=== PATIENT | female | born 1945 | race Caucasian/White ===

== ENCOUNTER → 2016-11-10 | Outpatient (CLI) | payer MEDICARE, OTHER ==
[~2016-11-10] MED LIST: ATEN50TA PO; CYCL10TA9 PO; ISOS30TA7 PO; LISI20TA PO; PRD10T PO; ROSU20TA14 PO; SERT50TA9 PO; ZOLP5TAB6 PO
--- NOTE | 2016-11-10 18:15 | Diagnostic Imaging Report ---
Three views of the lumbar spine. INDICATION: Back pain. FINDINGS: The alignment of the posterior spinal line is satisfactory. Vertebral body heights are preserved. There is moderate disc height loss at mid lumbar spine levels most prominent at the L4-L5 and L2-L3 levels. Prominent anterior osteophytes are seen. No significant posterior osteophytes. [id number] degenerative changes of the SI joints noted. IMPRESSION: Disc degenerative changes. Dictated by: Dictated on workstation # [id number]
--- NOTE | 2016-11-10 18:21 | Diagnostic Imaging Report ---
EXAMINATION: Two views of the left hip. INDICATION: Left hip pain. FINDINGS: There is no fracture, dislocation or radiopaque foreign body. Minimal subchondral sclerosis is seen. No significant osteophyte formation or joint space narrowing. There are metallic foreign bodies overlapping from the patient's pants as verified by the x-ray technologist who took the exam. IMPRESSION: Minimal degenerative changes. Dictated by: Dictated on workstation # [id number]
--- NOTE | 2016-11-10 18:38 | Diagnostic Imaging Report ---
Three views of the SI joints. INDICATION: Pain. FINDINGS: There are mild degenerative sclerotic changes at the SI joints and vacuum phenomenon. No fracture or dislocation seen. Overlying metallic foreign bodies are verified by the x-ray technologist as on the patient's pants. IMPRESSION: Mild degenerative changes. Dictated by: Dictated on workstation # [id number]
== END ==
LOC: RAD 15:56
PROVIDERS: ATTEND Family Medicine
DX: M54.5 Low back pain (principal); M25.552 Pain in left hip
CPT/HCPCS: 72100; 72202; 73502

== ENCOUNTER → 2016-12-17 | Outpatient (CLI) | payer MEDICARE, OTHER ==
[~2016-12-17] MED LIST changes: +CATHETER FLUSH 10 ML SYR IV PRN; +IOHEXOL 350 MG/ML 100 ML (OMNIPAQUE 350) VIAL IV ONE; +NS 100 ML (IVPB) BAG IV ONE
--- NOTE | 2016-12-17 13:14 | Diagnostic Imaging Report ---
PROCEDURE: CT abdomen and pelvis with contrast. TECHNIQUE: Multiple contiguous axial images were obtained through the abdomen and pelvis after administration of intravenous contrast. INDICATION: Abdominal pain. Right flank pain. 100 mL of Omnipaque 350 is administered intravenously. FINDINGS: The lung bases demonstrate minimal atelectasis bilaterally. The liver, the gallbladder, the spleen, the adrenals, and the pancreas appear unremarkable. The abdominal aorta is normal in caliber with no para-aortic significantly enlarged lymph nodes seen. The kidneys have symmetric enhancement and contrast excretion. No hydronephrosis. There is divarication of the recti with mild bulge along the anterior abdominal wall without a ventral hernia. There is no free fluid or fluid collection in the abdomen or pelvis seen. There is diverticulosis. No significant inflammatory changes are seen to suggest the presence of diverticulitis. There is no bowel obstruction. There is suggestion of prior hysterectomy. The osseous structures demonstrate prominent degenerative changes of the lower lumbar spine and SI joints. IMPRESSION: Diverticulosis. No diverticulitis. Dictated by: Dictated on workstation # [id number]
== END ==
LOC: RAD 11:01
PROVIDERS: ATTEND Nurse Practitioner Family
DX: R10.84 Generalized abdominal pain (principal); R14.0 Abdominal distension (gaseous); K57.30 Diverticulosis of large intestine without perforation or abscess without bleeding
CPT/HCPCS: 74177

== ENCOUNTER 2017-10-11 06:03 | Emergency (ER) | payer MEDICARE, OTHER ==
[~2017-10-11] VITALS: Ht 162.6 cm; Wt 86.2 kg
[~2017-10-11 06:03] MED LIST changes: -CATHETER FLUSH 10 ML SYR IV PRN; -IOHEXOL 350 MG/ML 100 ML (OMNIPAQUE 350) VIAL IV ONE; -NS 100 ML (IVPB) BAG IV ONE
[2017-10-11 06:58] LABS: BASOPHILS % (AUTO) 0 % (0-10); EOSINOPHILS # (AUTO) 0.1 10^3/uL (0.0-0.3); EOSINOPHILS % (AUTO) 2 % (0-10); HEMATOCRIT 38 % (35-52); HEMOGLOBIN 12.9 G/DL (11.5-16.0); LYMPHOCYTES # (AUTO) 0.7 X 10^3 (1.0-4.0); LYMPHOCYTES % (AUTO) 8 % (12-44); MEAN CORPUSCULAR HEMOGLOBIN 30 PG (25-34); MEAN CORPUSCULAR HGB CONC 34 G/DL (32-36); MEAN CORPUSCULAR VOLUME 88 FL (80-99); MEAN PLATELET VOLUME 10.8 FL (7.4-10.4); MONOCYTES # (AUTO) 0.6 X 10^3 (0.0-1.0); MONOCYTES % (AUTO) 7 % (0-12); NEUTROPHILS # (AUTO) 6.8 X 10^3 (1.8-7.8); NEUTROPHILS % (AUTO) 83 % (42-75); PLATELET COUNT 152 10^3/uL (130-400); RED BLOOD COUNT 4.31 10^6/uL (4.35-5.85); RED CELL DISTRIBUTION WIDTH 13.1 % (10.0-14.5); WHITE BLOOD COUNT 8.2 10^3/uL (4.3-11.0)
[2017-10-11 07:14] LABS: ALBUMIN 4.3 GM/DL (3.2-4.5); BILIRUBIN,TOTAL 0.7 MG/DL (0.1-1.0); CALCIUM 9.8 MG/DL (8.5-10.1); CREATININE SERUM 1.05 MG/DL (0.60-1.30); POTASSIUM 3.7 MMOL/L (3.6-5.0); TOTAL PROTEIN 7.8 GM/DL (6.4-8.2)
--- NOTE | 2017-10-11 07:57 | Diagnostic Imaging Report ---
INDICATION: Cough. COMPARISON: 05/17/2008 TECHNIQUE: Single frontal radiograph of the chest dated 10/11/2017. FINDINGS: The cardiac silhouette is within normal limits. No significant pulmonary vascular congestion. The lungs are clear. No pleural effusion. No pneumothorax. No acute osseous abnormality. IMPRESSION: No acute cardiopulmonary abnormality. Dictated by: Dictated on workstation # [id number]
--- NOTE | 2017-10-11 08:33 | ED Cough/URI ---
General Chief Complaint: Cough/Cold/Flu Symptoms Stated Complaint: SORE THROAT HEADACHE BODY ACHES ALL OVER Nursing Triage Note: PT C/O SORE THROAT, BODY ACHES, CAN, CHILLS, AND MALAISE SINCE THURSDAY EVENING. Source: patient Exam Limitations: no limitations History of Present Illness Date Seen by Provider: Oct 11, 2017 Time Seen by Provider: 08:28 Initial Comments The patient is a 72-year-old white female. She reports that since she has had a significant sore throat, a headache, and aching all over her body. Temperature at presentation was 99.5. She was especially concerned because she has lupus. She denied chills or sweats. Timing/Duration: week Severity/Quality: no cough Prior Episodes/Possible Cause: occasional episodes Allergies and Home Medications Allergies Coded Allergies: No Known Drug Allergies (Unverified , 02/04/12) Home Medications Atenolol 50 Mg Tablet, 1 EACH PO DAILY, (Reported) Cyclobenzaprine Hcl 10 Mg Tablet, 1 EACH PO Q8HR PRN Prescribed by: DAMEON KIRAN on 02/04/12 0859 Isosorbide Dinitrate 30 Mg Tablet, 1 EACH PO BID, (Reported) Lisinopril 20 Mg Tablet, 20 MG PO BID, (Reported) Prednisone 10 Mg Tab, 30 MG PO DAILY Prescribed by: DAMEON KIRAN on 02/04/12 0859 Rosuvastatin Calcium 20 Mg Tablet, 1 EACH PO DAILY, (Reported) Sertraline Hcl 50 Mg Tablet, 50 MG PO DAILY, (Reported) Zolpidem Tartrate 5 Mg Tablet, 5 MG PO DAILY, (Reported) Patient Home Medication List Home Medication List Reviewed: Yes Constitutional: see HPI EENTM: nose congestion, throat pain Respiratory: no symptoms reported Cardiovascular: no symptoms reported Gastrointestinal: no symptoms reported Musculoskeletal: muscle pain Skin: no symptoms reported Psychiatric/Neurological: No Symptoms Reported Hematologic/Lymphatic: No Symptoms Reported Past Ytsjrhb-Rdguhk-Mxfkia Hx Patient Social History Alcohol Use: Denies Use Recreational Drug Use: No Smoking Status: Never a Smoker 2nd Hand Smoke Exposure: No Recent Foreign Travel: No Contact w/Someone Who Travel: No Recent Infectious Disease Expo: No Recent Hopitalizations: No Immunizations Up To Date Date of Pneumonia Vaccine: May 03, 2011 Seasonal Allergies Seasonal Allergies: No Surgeries History of Surgeries: Yes Surgeries: Hysterectomy, Tonsillectomy Respiratory History of Respiratory Disorde: No Cardiovascular History of Cardiac Disorders: Yes Cardiac Disorders: High Cholesterol, Hypertension Neurological History of Neurological Disord: No Genitourinary History of Genitourinary Disor: No Gastrointestinal History of Gastrointestinal Di: No Musculoskeletal History of Musculoskeletal Dis: No Endocrine History of Endocrine Disorders: No HEENT History of HEENT Disorders: No Cancer History of Cancer: No Psychosocial History of Psychiatric Problem: No Integumentary History of Skin or Integumenta: No Physical Exam Vital Signs Vital Signs - First Documented 10/11/17 06:25 Temp 99.1 Pulse 76 Resp 16 B/P (MAP) 138/76 (96) Pulse Ox 97 O2 Delivery Room Air Capillary Refill : Less Than 3 Seconds General Appearance: mild distress Eyes: Bilateral Eye Normal Inspection HEENT: pharyngeal erythema Neck: full range of motion Respiratory: chest non-tender, lungs clear, normal breath sounds, no respiratory distress, no accessory muscle use, respiratory distress Cardiovascular: normal peripheral pulses, regular rate, rhythm, no edema, no gallop, no JVD, no murmur Gastrointestinal: normal bowel sounds, non tender, soft, no organomegaly, no pulsatile mass 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, no motor/sensory deficits, alert, normal mood/affect, oriented x 3 Skin: normal color, warm/dry, cyanosis, cool, diaphoresis, damp Lymphatic: no adenopathy Progress/Results/Core Measures Suspected Sepsis Recent Fever Within 48 Hours: No Infection Criteria Present: None New/Unexplained Altered Menta: No Sepsis Screen: No Definite Risk Sepsis Diagnosis: SIRS Temperature:99.1 Pulse: 76 Respiratory Rate: 16 Laboratory Tests 10/11/17 06:50: White Blood Count 8.2 Blood Pressure 138 /76 Mean: 96 Laboratory Tests 10/11/17 06:50: Creatinine 1.05, Platelet Count 152, Total Bilirubin 0.7 Results/Orders Lab Results Laboratory Tests Test 10/11/17 06:50 Range/Units White Blood Count 8.2 4.3-11.0 10^3/uL Red Blood Count 4.31 L 4.35-5.85 10^6/uL Hemoglobin 12.9 11.5-16.0 G/DL Hematocrit 38 35-52 % Mean Corpuscular Volume 88 80-99 FL Mean Corpuscular Hemoglobin 30 25-34 PG Mean Corpuscular Hemoglobin Concent 34 32-36 G/DL Red Cell Distribution Width 13.1 10.0-14.5 % Platelet Count 152 130-400 10^3/uL Mean Platelet Volume 10.8 H 7.4-10.4 FL Neutrophils (%) (Auto) 83 H 42-75 % Lymphocytes (%) (Auto) 8 L 12-44 % Monocytes (%) (Auto) 7 0-12 % Eosinophils (%) (Auto) 2 0-10 % Basophils (%) (Auto) 0 0-10 % Neutrophils # (Auto) 6.8 1.8-7.8 X 10^3 Lymphocytes # (Auto) 0.7 L 1.0-4.0 X 10^3 Monocytes # (Auto) 0.6 0.0-1.0 X 10^3 Eosinophils # (Auto) 0.1 0.0-0.3 10^3/uL Basophils # (Auto) 0.0 0.0-0.1 10^3/uL Sodium Level 140 135-145 MMOL/L Potassium Level 3.7 3.6-5.0 MMOL/L Chloride Level 104 98-107 MMOL/L Carbon Dioxide Level 27 21-32 MMOL/L Anion Gap 9 5-14 MMOL/L Blood Urea Nitrogen 18 7-18 MG/DL Creatinine 1.05 0.60-1.30 MG/DL Estimat Glomerular Filtration Rate 51 BUN/Creatinine Ratio 17 Glucose Level 114 H 70-105 MG/DL Calcium Level 9.8 8.5-10.1 MG/DL Total Bilirubin 0.7 0.1-1.0 MG/DL Aspartate Amino Transf (AST/SGOT) 24 5-34 U/L Alanine Aminotransferase (ALT/SGPT) 20 0-55 U/L Alkaline Phosphatase 116 40-136 U/L Total Protein 7.8 6.4-8.2 GM/DL Albumin 4.3 3.2-4.5 GM/DL Micro Results Microbiology 10/11/17 Influenza Types A,B Antigen (LOIS) - Final, Complete My Orders Orders - FABIAN MANNING MD Cbc With Automated Diff (10/11/17 06:37) Comprehensive Metabolic Panel (10/11/17 06:37) Ua Culture If Indicated (10/11/17 06:37) Influenza A And B Antigens (10/11/17 06:37) Chest 1 View, Ap/Pa Only (10/11/17 07:17) Vital Signs/I&O Vital Sign - Last 12Hours 10/11/17 06:25 Temp 99.1 Pulse 76 Resp 16 B/P (MAP) 138/76 (96) Pulse Ox 97 O2 Delivery Room Air Capillary Refill : Less Than 3 Seconds Blood Pressure Mean: 96 Departure Impression Impression: Primary Impression: Upper respiratory infection Disposition: HOME, SELF-CARE Condition: Stable/Unchanged Departure-Patient Inst. Referrals: JÚNIOR KLINE MD (PCP/Family) Primary Care Physician Patient Instructions: Viral Upper Respiratory Infection, Adult (DC) Add. Discharge Instructions: All discharge instructions reviewed with patient and/or family. Voiced understanding. Although you tested negative for the flu, the test is not infallible and you may indeed have the flu. Treatment is symptomatic which is to say throat lozenges or gargles for the throat pain. In addition if the fever is greater than 100.5 or there is significant body aching the use of Tylenol 650 mg or ibuprofen 600 mg it is useful. Rest and lots of fluids are in order. This can take a week or more to resolve. If symptoms increase return here or see her provider. FABIAN MANNING MD Oct 11, 2017 08:33
[2017-10-11 08:42] VITALS: BP 138/76
--- OUTSIDE RECORDS SUMMARY | 2017-10-11 14:22 | XMS REPORT | CCD ---
Author Author Sary Polo Organization Sary Polo MD, [facility] Address [address] [place] [address] Phone Care Team Providers Care Sports Photographer Name Role Phone PP Unavailable CCM Unavailable Summary Purpose Interface Exchange Insurance Providers Payer name Policy type / Coverage type Covered constitution party ID Effective Begin Date Effective End Date WPS Medicare Part B Medicare Part B [id number] Unknown Unknown [facility] [employer] Medicare Part B [id number] Unknown Unknown Family history Mother Diagnosis Age At Onset Diabetes mellitus Type 2 Unknown Stroke Unknown Father Diagnosis Age At Onset Heart Attack Unknown Social History Social History Element Codes Description Effective Dates Marital status Unknown 10/23/2014 Number of children Unknown 2 10/23/[address]: 593472278 Never smoker 10/23/[address]: 187779443 Never drinks alcohol 10/23/2014 Allergies, Adverse Reactions, Alerts Allergies, Adverse Reactions, Alerts data not found Past Medical History Illness Codes Condition Status Onset Date Resolved Date Discoid lupus erythematosus ICD-9: 695.4 ICD-10: L93.0 Active 05/04/2016 Unknown Essential (primary) hypertension ICD-9: 401.1 ICD-10: I10 Active 11/10/2016 Unknown Encounter for immunization ICD-9: V03.9 ICD-10: Z23 Active 05/18/2017 Unknown Mixed hyperlipidemia ICD-9: 272.2 ICD-10: E78.2 Active 11/10/2016 Unknown Morbid (severe) obesity due to excess calories ICD-9: 278.01 ICD-10: E66.01 Active 05/18/2017 Unknown Other forms of dyspnea ICD-9: 786.09 ICD-10: R06.09 Active 02/04/2017 Unknown Generalized abdominal pain ICD-9: 789.07 ICD-10: R10.84 Active 12/12/2016 Unknown Low back pain ICD-9: 724.2 ICD-10: M54.5 Active 11/10/2016 Unknown Other organ or system involvement in systemic lupus erythematosus ICD-9: 710.0 ICD-10: M32.19 Active 02/04/2017 Unknown Abnormal uterine and vaginal bleeding, unspecified ICD-9: 623.8 ICD-10: N93.9 Active 12/12/2016 Unknown Pain in left hip ICD-9 : 719.45 ICD-10: M25.552 Active 11/10/2016 Unknown Encounter for general adult medical examination without abnormal findings ICD-9: V70.9 ICD-10: Z00.00 Active 10/17/2016 Unknown Essential (primary) hypertension ICD-9: 401.9 ICD-10: I10 Active 10/23/2014 Unknown Systemic lupus erythematosus, unspecified ICD-9: 710.0 ICD-10: M32.9 Active 10/01/2015 Unknown Encounter for screening mammogram for malignant neoplasm of breast ICD-9: V76.12 ICD-10: Z12.31 Active 08/10/2016 Unknown Encounter for immunization ICD-9: V03.82 ICD-10: Z23 Active 05/04/2016 Unknown Dysphonia ICD-9: 784.42 ICD-10: R49.0 Active 04/20/2016 Unknown Encounter for immunization ICD-9: V04.81 ICD-10: Z23 Active 04/20/2016 Unknown Other intestinal malabsorption ICD-9: 579.8 ICD-10: K90.89 Active 04/20/2016 Unknown Other fecal abnormalities ICD-9: 787.7 ICD-10: R19.5 Active 10/01/2015 Unknown Intestinal malabsorption, unspecified ICD-9: 579.9 ICD-10: K90.9 Active 08/08/2015 Unknown Medication reaction ICD-9: 995.20 Active 03/13/2015 Unknown Low back pain ICD-9: 724.2 Active 12/25/2014 Unknown Sacroiliitis ICD-9: 720.2 Active 12/25/2014 Unknown Hypertension Unknown Active 10/23/2014 Unknown ESOPHAGEAL REFLUX ICD- 9: 530.81 Active 10/23/2014 Unknown ESSENTIAL HYPERTENSION ICD-9: 401.9 Active 10/23/2014 Unknown Malar rash ICD-9: 782.1 Active 10/23/2014 Unknown Rosacea ICD-9: 695.3 Active 10/23/2014 Unknown Problems Condition Codes Effective Dates Condition Status Discoid lupus erythematosus ICD-9: 695.4 ICD-10: L93.0 05/04/2016 Active Essential (primary) hypertension ICD-9: 401.1 ICD-10: I10 11/10/2016 Active Encounter for immunization ICD-9: V03.9 ICD-10: Z23 05/18/2017 Active Mixed hyperlipidemia ICD-9: 272.2 ICD-10: E78.2 11/10/2016 Active Morbid (severe) obesity due to excess calories ICD-9: 278.01 ICD-10: E66.01 05/18/2017 Active Other forms of dyspnea ICD-9: 786.09 ICD-10: R06.09 02/04/2017 Active Generalized abdominal pain ICD-9: 789.07 ICD-10: R10.84 12/12/2016 Active Low back pain ICD-9: 724.2 ICD-10: M54.5 11/10/2016 Active Other organ or system involvement in systemic lupus erythematosus ICD-9: 710.0 ICD-10: M32.19 02/04/2017 Active Abnormal uterine and vaginal bleeding, unspecified ICD-9: 623.8 ICD-10: N93.9 12/12/2016 Active Pain in left hip ICD-9 : 719.45 ICD-10: M25.552 11/10/2016 Active Encounter for general adult medical examination without abnormal findings ICD-9: V70.9 ICD-10: Z00.00 10/17/2016 Active Essential (primary) hypertension ICD-9: 401.9 ICD-10: I10 10/23/2014 Active Systemic lupus erythematosus, unspecified ICD-9: 710.0 ICD-10: M32.9 10/01/2015 Active Encounter for screening mammogram for malignant neoplasm of breast ICD-9: V76.12 ICD-10: Z12.31 08/10/2016 Active Encounter for immunization ICD-9: V03.82 ICD-10: Z23 05/04/2016 Active Dysphonia ICD-9: 784.42 ICD-10: R49.0 04/20/2016 Active Encounter for immunization ICD-9: V04.81 ICD-10: Z23 04/20/2016 Active Other intestinal malabsorption ICD-9: 579.8 ICD-10: K90.89 04/20/2016 Active Other fecal abnormalities ICD-9: 787.7 ICD-10: R19.5 10/01/2015 Active Intestinal malabsorption, unspecified ICD-9: 579.9 ICD-10: K90.9 08/08/2015 Active Medication reaction ICD-9: 995.20 03/13/2015 Active Low back pain ICD-9: 724.2 12/25/2014 Active Sacroiliitis ICD-9: 720.2 12/25/2014 Active Hypertension Unknown 10/23/2014 Active ESOPHAGEAL REFLUX ICD- 9: 530.81 10/23/2014 Active ESSENTIAL HYPERTENSION ICD-9: 401.9 10/23/2014 Active Malar rash ICD-9: 782.1 10/23/2014 Active Rosacea ICD-9: 695.3 10/23/2014 Active Medications Medication Codes Instructions Start Date Stop Date Status Fill Instructions hydroxychloroquine 200 mg tablet RxNorm: 939790 1 Tablet(s) PO BID 07/01/2017 12/27/2017 Active atenolol 50 mg tablet RxNorm: 099212 1 Tablet(s) PO daily 201606/05/2018 Active sertraline 50 mg tablet RxNorm: 336140 TAKE 1 TABLET EVERY DAY 05/15/2017 05/09/2018 Active pravastatin 20 mg tablet RxNorm: 981948 1 Tablet(s) PO daily 02/02/2018 Active ipratropium bromide 0.06 % nasal spray RxNorm: 5364965 2 [place] NASAL daily 10/20/2016 10/14/2017 Active ipratropium bromide 0.06 % nasal spray RxNorm: 9176813 2 [place] daily 10/17/2016 10/19/2016 Inactive losartan 50 mg tablet RxNorm: 352325 1 Tablet(s) PO QPM 201610/07/2017 Active ipratropium bromide 0.06 % nasal spray RxNorm: 7416749 2 [place] NAS[place] 10/13/2016 10/16/2016 Inactive atenolol 50 mg tablet RxNorm: 211923 1 Tablet(s) PO daily 201606/10/2017 Inactive isosorbide mononitrate ER 30 mg tablet,extended release 24 hr RxNorm: 546497 2 Tablet(s) PO daily 05/05/2016 10/16/2016 Inactive sertraline 50 mg tablet RxNorm: 813219 1 Tablet(s) PO daily 04/15/2017 Inactive dicyclomine 10 mg capsule RxNorm: 919968 1 Capsule(s) PO QID as needed abdominal pain 04/21/2016 05/04/2016 Inactive Questran 4 gram oral powder RxNorm: 950559 1 packet PO BID as needed before meals to help prevent diarrhea associated with meals 10/02/2015 04/20/2016 Inactive Pepcid AC 20 mg tablet RxNorm: 621721 1 Tablet(s) PO BID 201404/20/2016 Inactive [SAVINGS FOR NON-COVERED DRUGS -- BIN:[id number], PCN: [id number], Group: XXXXX, ID # [id number], Questions: . THIS IS NOT INSURANCE.] Co Q-10 200 mg capsule RxNorm: 350565 1 Capsule(s) PO daily 04/20/2016 Inactive metronidazole 0.75 % topical gel RxNorm: 599650 1 Application TOP QPM 10/23/2014 11/21/2014 Inactive [SAVINGS FOR NON-COVERED DRUGS -- BIN:[id number], PCN: [id number], Group: XXXXX, ID# [id number], Questions: . THIS IS NOT INSURANCE.] Vitamin D3 2,000 unit capsule RxNorm: 180905 1 Capsule(s) PO daily No Start Date Active tizanidine 2 mg tablet RxNorm: 302965 1 Tablet(s) PO QHS as needed No Start Date Active hydroxychloroquine 200 mg tablet RxNorm: 873677 1 Tablet(s) PO BID No Start Date 06/30/2017 Inactive pravastatin 20 mg tablet RxNorm: 330797 1 Tablet(s) PO daily No Start Date 11/09/2016 Inactive atenolol 50 mg tablet RxNorm: 213547 1 Tablet(s) PO daily No Start Date 10/12/2016 Inactive sertraline 50 mg tablet RxNorm: 851008 1 Tablet(s) PO daily No Start Date 04/20/2016 Inactive isosorbide mononitrate ER 30 mg tablet,extended release 24 hr RxNorm: 290498 1 Tablet(s) PO BID No Start Date 04/03/2016 Inactive ipratropium bromide 0.06 % nasal spray RxNorm: 1144613 2 [place] NASAL No Start Date 10/12/2016 Inactive lisinopril 20 mg tablet RxNorm: 511459 1 Tablet(s) PO BID No Start Date 04/20/2016 Inactive Vitamin B RxNorm: 1 Tablet(s) PO daily No Start Date 04/20/2016 Inactive isosorbide (bulk) 98 % powder RxNorm: miscellaneous No Start Date 10/22/2014 Inactive Medication Administered No Medication Administered data Immunizations Vaccine Codes Date Status Influenza CVX: 141 05/18/2017 completed Pneumococcal (Adult) CVX: 133 05/05/2016 completed Influenza CVX: 141 04/21/2016 completed Assessments Condition Codes Effective Dates Essential (primary) hypertension ICD-10: I10 ICD-9: 401.1 08/20/2017 Discoid lupus erythematosus ICD-10: L93.0 ICD-9: 695.4 08/20/2017 Morbid (severe) obesity due to excess calories ICD-10: E66.01 ICD-9: 278.01 05/18/2017 Other forms of dyspnea ICD-10: R06.09 ICD-9: 786.09 05/18/2017 Mixed hyperlipidemia ICD-10: E78.2 ICD-9: 272.2 05/18/2017 Encounter for immunization ICD-10: Z23 ICD-9: V03.9 05/18/2017 Generalized abdominal pain ICD-10: R10.84 ICD-9: 789.07 02/04/2017 Other organ or system involvement in systemic lupus erythematosus ICD-10: M32.19 ICD-9: 710.0 02/04/2017 Low back pain ICD-10: M54.5 ICD-9: 724.2 02/04/2017 Abnormal uterine and vaginal bleeding, unspecified ICD-10: N93.9 ICD-9: 623.8 12/12/2016 Pain in left hip ICD-10: M25.552 ICD-9: 719.45 11/10/2016 Encounter for general adult medical examination without abnormal findings ICD-10: Z00.00 ICD-9: V70.9 10/17/2016 Essential (primary) hypertension ICD-10: I10 ICD-9: 401.9 10/13/2016 Encounter for screening mammogram for malignant neoplasm of breast ICD-10: Z12.31 ICD-9: V76.12 08/11/2016 Encounter for immunization ICD-10: Z23 ICD-9: V03.82 05/05/2016 Dysphonia ICD-10: R49.0 ICD-9: 784.42 04/21/2016 Other intestinal malabsorption ICD-10: K90.89 ICD-9: 579.8 04/21/2016 Encounter for immunization ICD-10: Z23 ICD-9: V04.81 04/21/2016 Other fecal abnormalities ICD-10: R19.5 ICD-9: 787.7 10/02/2015 Systemic lupus erythematosus, unspecified ICD-10: M32.9 ICD-9: 710.0 10/02/2015 Intestinal malabsorption, unspecified ICD-10: K90.9 ICD-9: 579.9 08/09/2015 ESSENTIAL HYPERTENSION ICD-9: 401.9 03/14 Medication reaction ICD-9: 995.20 2014 Low back pain ICD-9: 724.2 12/26/2014 Sacroiliitis ICD-9: 720.2 12/26/2014 Malar rash ICD-9: 782.1 11/06/2014 ESOPHAGEAL REFLUX ICD-9: 530.81 2014 Rosacea ICD-9: 695.3 10/23/2014 Reason For Visit Reason For Visit Effective Dates Notes dyspnea 08/20/2017 dyspnea 05/18/2017 dyspnea 02/04/2017 vaginal bleeding 12/12/2016 dyspnea 11/10/2016 Annual Medicare Wellness Exam 10/17/2016 diarrhea 10/13/2016 diarrhea 05/05/2016 diarrhea 04/21/2016 diarrhea 10/02/2015 hypertension 08/09/2015 ~generic 03/14/2015 feels hot all of the time back pain 12/26/2014 _ 11/06/2014 here to discuss labs. rash 10/23/2014 onset fall Results Observation Observation Code Item Item Code Result Date Comp Metabolic Uyt807 NA 141 mEq/L 12/12/2016 Comp Metabolic Wdx453 K 3.8 mEq/L 12/12/2016 Comp Metabolic Lip757 CL 104 mEq/L 12/12/2016 Comp Metabolic Rcs613 CO2 27.0 mEq/L 12/12/2016 Comp Metabolic Hwp482 ANION GAP 14 12/12/2016 Comp Metabolic Wdk165 GLUCOSE 84 mg/dL 12/12/2016 Comp Metabolic Glg717 Creat 1.0 mg/dL 12/12/2016 Comp Metabolic Yye482 eGFR 58 ml/min/1.73m2 12/12/2016 Comp Metabolic Gbi314 BUN 18 mg/dL 12/12/2016 Comp Metabolic Vsi387 B/C Ratio 18.0 Ratio 12/12/2016 Comp Metabolic Kmg485 CALCIUM 9.1 mg/dL 12/12/2016 Comp Metabolic Iyh838 ALK PHOS 92 U/L 12/12/2016 Comp Metabolic Keq349 AST(SGOT) 28 U/L 12/12/2016 Comp Metabolic Gfw387 ALT(SGPT) 17 U/L 12/12/2016 Comp Metabolic Xgc385 BILI T 0.7 mg/dL 12/12/2016 Comp Metabolic Obj569 ALBUMIN 4.1 g/dL 12/12/2016 Comp Metabolic Yuf087 TPRO 6.9 g/dL 12/12/2016 Comp Metabolic Coz061 GLOB 2.8 g/dL 12/12/2016 Comp Metabolic Ebs944 A/G Ratio 1.5 Ratio 12/12/2016 Comp Metabolic Ugv155 Osmo 282 mOsmo 12/12/2016 LIPID GRP CHOLESTEROL 186 mg/dL 10/17/2016 LIPID GRP Triglyceride 146 mg/dL 10/17/2016 LIPID GRP HDL CHOLESTEROL 59 mg/dL 10/17/2016 LIPID GRP 3532083 Chol/HDL Ratio 3.15 ratio 10/17/2016 LIPID GRP 4010044 NON-HDL Chol 127 mg/dL 10/17/2016 LIPID GRP LDL Cholesterol 98 mg/dL 10/17/2016 TSH 7128708 TSH 1.120 uIU/mL 10/17/2016 CBC 4874266 WBC 7.6 10e9/L 10/17/2016 CBC 4160209 RBC 4.14 10e12/L 10/17/2016 CBC 1799097 HEMOGLOBIN 12.2 g/dL 10/17/2016 CBC 9744939 HEMATOCRIT 36.6 % 10/17/2016 CBC 5071974 MCV 88.4 fL 10/17/2016 CBC 9558318 MCH 29.5 pg 10/17/2016 CBC 1903636 MCHC 33.3 g/dL 10/17/2016 CBC 1069041 PLATELET COUNT 172 10e9/L 10/17/2016 CBC 2678269 Mean Plt Volume 10.8 fL 10/17/2016 CBC 3614232 Neut Auto 61.5 % 10/17/2016 CBC 8025253 Lymph Auto 26.5 % 10/17/2016 CBC 9341709 [place] Auto 8.8 % 10/17/2016 CBC 8991650 Eos Auto 2.9 % 10/17/2016 CBC 7458706 RDW 13.2 % 10/17/2016 CBC 9374655 Baso Auto 0.3 % 10/17/2016 CBC 7323647 Neutrophil Abs 4.67 10e9/L 10/17/2016 CBC 0602730 Lymphocyte Abs 2.01 10e9/L 10/17/2016 CBC 6471468 Monocyte Abs 0.67 10e9/L 10/17/2016 CBC 2935364 Eosinophil Abs 0.22 10e9/L 10/17/2016 CBC 6868220 RDW-SD 41.4 fL 10/17/2016 CBC 2808259 Basophil Abs 0.02 10e9/L 10/17/2016 GFR CALC 3293057 GFR Non Afr Amr 44 mL/min 10/17/2016 GFR CALC 3256027 GFR Afr Amr 53 mL/min 10/17/2016 CHEM 14 0047778 AST 21 U/L 10/17/2016 CHEM 14 4582497 ALT 13 U/L 10/17/2016 CHEM 14 9616896 BUN 24 mg/dL 10/17/2016 CHEM 14 3532176 ALBUMIN 4.3 g/dL 10/17/2016 CHEM 14 1422146 CHLORIDE 105 mmol/L 10/17/2016 CHEM 14 3915238 Bili Total 0.6 mg/dL 10/17/2016 CHEM 14 4491952 ALK PHOS 86 U/L 10/17/2016 CHEM 14 7499099 SODIUM 140 mmol/L 10/17/2016 CHEM 14 0096710 CREATININE 1.21 mg/dL 10/17/2016 CHEM 14 8118863 CALCIUM 9.8 mg/dL 10/17/2016 CHEM 14 3777505 POTASSIUM 3.9 mmol/L 10/17/2016 CHEM 14 7732043 TOTAL PROTEIN 7.5 g/dL 10/17/2016 CHEM 14 9767682 GLUCOSE 92 mg/dL 10/17/2016 CHEM 14 4257756 Bicarbonate 27 mmol/L 10/17/2016 CHEM 14 2707370 AGAP 8 mmol/L 10/17/2016 TSH 0650943 TSH 1.394 uIU/ML 08/13/2015 CBC 2705415 WBC 7.7 10e9/L 08/13/2015 CBC 1529297 RBC 4.21 10e12/L 08/13/2015 CBC 1731699 HGB 12.3 g/dL 08/13/2015 CBC 1712212 HCT DET 37.3 % 08/13/2015 CBC 0301371 MCV 88.6 fL 08/13/2015 CBC 5522087 MCH 29.2 pg 08/13/2015 CBC 3319319 MCHC 33.0 g/dL 08/13/2015 CBC 3473480 PLT 156 10e9/L 08/13/2015 CBC 7958382 MPV 10.6 fL 08/13/2015 CBC 4716191 FANNY % 55.1 % 08/13/2015 CBC 2295822 LY % 35.1 % 08/13/2015 CBC 7667411 MON % 6.9 % 08/13/2015 CBC 8931430 EOS % 2.6 % 08/13/2015 CBC 7745979 BASO % 0.3 % 08/13/2015 CBC 6885771 RDW 12.9 % 08/13/2015 CBC 4236966 ABS FANNY 4.24 10e9/L 08/13/2015 CBC 5219737 ABS LYMPH 2.70 10e9/L 08/13/2015 CBC 2356940 ABS MONO 0.53 10e9/L 08/13/2015 CBC 4048125 ABS EOS 0.20 10e9/L 08/13/2015 CBC 7878963 ABS BASO 0.02 10e9/L 08/13/2015 CBC 5510664 RDW-SD 40.8 fL 08/13/2015 CHEM 14 0818683 AST 19 U/L 08/13/2015 CHEM 14 2768204 ALT 10 IU/L 08/13/2015 CHEM 14 5008538 BUN 18 MG/DL 08/13/2015 CHEM 14 7980099 ALBUMIN 4.3 GM/DL 08/13/2015 CHEM 14 8307314 CHLORIDE 105 MMOL/L 08/13/2015 CHEM 14 5466903 BILI TOT 0.4 MG/DL 08/13/2015 CHEM 14 2551257 ALK PHOS 84 U/L 08/13/2015 CHEM 14 2979069 SODIUM 141 MMOL/L 08/13/2015 CHEM 14 3420806 CREATININE 1.12 MG/DL 08/13/2015 CHEM 14 5940344 CALCIUM 9.5 MG/DL 08/13/2015 CHEM 14 2820002 POTASSIUM 3.6 MMOL/L 08/13/2015 CHEM 14 5393285 PROT TOT 7.5 GM/DL 08/13/2015 CHEM 14 8215862 GLUCOSE 88 MG/DL 08/13/2015 CHEM 14 0254717 BICARB 29 MMOL/L 08/13/2015 CHEM 14 6594030 ANION GAP 7 MEQ/L 08/13/2015 LIPID GRP HDL TEST 67 MG/DL 08/13/2015 LIPID GRP TRIG 135 MG/DL 08/13/2015 LIPID GRP TEST LDL 104 MG/DL 08/13/2015 LIPID GRP CHOL 198 MG/DL 08/13/2015 LIPID GRP RCHOL/HDL 2.96 RATIO 08/13/2015 LIPID GRP NON-HDL CH 131 MG/DL 08/13/2015 GFR CALC 6212598 GFR AA 58.0L ML/MIN 08/13/2015 GFR CALC 9208852 GFR NON-AA 48.0L ML/MIN 08/13/2015 GPI BETA 2 2973747 BETA 2 IGG 1.5 SGU 10/26/2014 GPI BETA 2 7405147 BETA 2 IGM 2.8 SMU 10/26/2014 CARDIO G/M 8409151 CARDIO IGG 5.4 GPLU 10/25/2014 CARDIO G/M 3944355 CARDIO IGM 21.8 MPLU 10/25/2014 TITER SORAYA 0914428 TITR SORAYA 1:320 10/24/2014 TITER SORAYA [id number] PATTERN HOMOGENS 10/24/2014 TITER SORAYA 7398344 SORAYA 2 1:320 10/24/2014 TITER SORAYA 3913116 PATTERN 2 SPECKLED 10/24/2014 C4 5984262 C4 39 MG/DL 10/24/2014 C3 9931364 C3 136 MG/DL 10/24/2014 SORAYA SCR [id number] SORAYA SCR POSITIVE 10/24/2014 CHEM 14 6847145 AST 22 U/L 10/23/2014 CHEM 14 4231154 ALT 13 IU/L 10/23/2014 CHEM 14 4196244 BUN 19 MG/DL 10/23/2014 CHEM 14 1963476 ALBUMIN 4.3 GM/DL 10/23/2014 CHEM 14 0730158 CHLORIDE 106 MMOL/L 10/23/2014 CHEM 14 7387573 BILI TOT 0.4 MG/DL 10/23/2014 CHEM 14 4637615 ALK PHOS 87 U/L 10/23/2014 CHEM 14 1223528 SODIUM 140 MMOL/L 10/23/2014 CHEM 14 3176907 CREATININE 1.02 MG/DL 10/23/2014 CHEM 14 6187750 CALCIUM 9.1 MG/DL 10/23/2014 CHEM 14 3201696 POTASSIUM 3.8 MMOL/L 10/23/2014 CHEM 14 6627357 PROT TOT 7.0 GM/DL 10/23/2014 CHEM 14 1161042 GLUCOSE 90 MG/DL 10/23/2014 CHEM 14 9604268 BICARB 29 MMOL/L 10/23/2014 CHEM 14 6319862 ANION GAP 5 MEQ/L 10/23/2014 FREE T4 3711321 FREE T4 1.05 NG/DL 10/23/2014 CRP 2066488 CRP 0.6 MG/DL 10/23/2014 TSH 2369193 TSH 0.609 uIU/ML 10/23/2014 GFR CALC 9132026 GFR AA >60 ML/MIN 10/23/2014 GFR CALC 9573406 GFR NON-AA 54.0L ML/MIN 10/23/2014 ESR 9797376 ESR 31 MM/HR 10/23/2014 CBC 6511121 WBC 5.8 10e9/L 10/23/2014 CBC 3769153 RBC 4.06 10e12/L 10/23/2014 CBC 8144081 HGB 12.0 g/dL 10/23/2014 CBC 3298891 HCT DET 35.8 % 10/23/2014 CBC 2379541 MCV 88.2 fL 10/23/2014 CBC 2785233 MCH 29.6 pg 10/23/2014 CBC 3486526 MCHC 33.5 g/dL 10/23/2014 CBC 8186137 PLT 164 10e9/L 10/23/2014 CBC 7469073 MPV 9.9 fL 10/23/2014 CBC 4210008 FANNY % 57.6 % 10/23/2014 CBC 0637787 LY % 33.2 % 10/23/2014 CBC 1539657 MON % 6.9 % 10/23/2014 CBC 9415680 EOS % 2.1 % 10/23/2014 CBC 9719663 BASO % 0.2 % 10/23/2014 CBC 6304021 RDW 14.2 % 10/23/2014 CBC 5266597 ABS FANNY 3.34 10e9/L 10/23/2014 CBC 7057747 ABS LYMPH 1.93 10e9/L 10/23/2014 CBC 5258905 ABS MONO 0.40 10e9/L 10/23/2014 CBC 5974529 ABS EOS 0.12 10e9/L 10/23/2014 CBC 2932214 ABS BASO 0.01 10e9/L 10/23/2014 CBC 7500366 RDW-SD 45.0 fL 10/23/2014 Review of Systems System Result Effective Dates Constitutional No recent illness 2017 Constitutional No fatigue 08/20/2017 Constitutional No fever 08/20/2017 Constitutional No insomnia 08/20/2017 Eyes No eye erythema 08/20/2017 Ears/Nose/Throat/Neck No headache 2017 Cardiovascular No chest pain/pressure Cardiovascular No edema 08/20/2017 Cardiovascular hypertension 08/20/2017 Cardiovascular No near-syncope/dizziness 08/20/2017 Cardiovascular No syncope 08/20/2017 Respiratory No productive sputum 2017 Respiratory No chest congestion 2017 Respiratory No chest tightness 2017 Respiratory No cough 08/20/2017 Respiratory No dyspnea 08/20/2017 Gastrointestinal No abdominal pain 2017 Gastrointestinal dyspepsia 08/20/2017 Gastrointestinal gastroesophageal reflux 08/20/2017 Musculoskeletal No joint complaint 2017 Neurologic No alteration of consciousness 08/20/2017 Psychiatric No anxiety 08/20/2017 Psychiatric No depression 08/20/2017 Endocrine sweating 08/20/2017 Constitutional No recent illness 2016 Constitutional No fatigue 05/18/2017 Constitutional No fever 05/18/2017 Constitutional No insomnia 05/18/2017 Eyes No eye erythema 05/18/2017 Ears/Nose/Throat/Neck No headache 2016 Cardiovascular No chest pain/pressure Cardiovascular No edema 05/18/2017 Cardiovascular hypertension 05/18/2017 Cardiovascular No near-syncope/dizziness 05/18/2017 Cardiovascular No syncope 05/18/2017 Respiratory No productive sputum 2016 Respiratory No chest congestion 2016 Respiratory No chest tightness 2016 Respiratory No cough 05/18/2017 Respiratory No dyspnea 05/18/2017 Gastrointestinal No abdominal pain 2016 Gastrointestinal dyspepsia 05/18/2017 Gastrointestinal gastroesophageal reflux 05/18/2017 Musculoskeletal No joint complaint 2016 Neurologic No alteration of consciousness 05/18/2017 Psychiatric No anxiety 05/18/2017 Psychiatric No depression 05/18/2017 Endocrine sweating 05/18/2017 Constitutional No recent illness 2016 Constitutional No fatigue 02/04/2017 Constitutional No fever 02/04/2017 Constitutional No insomnia 02/04/2017 Eyes No eye discharge 02/04/2017 Eyes No eye erythema 02/04/2017 Ears/Nose/Throat/Neck No headache 2016 Cardiovascular No chest pain/pressure 12/2016 Cardiovascular No edema 02/04/2017 Cardiovascular hypertension 02/04/2017 Cardiovascular No near-syncope/dizziness 02/04/2017 Cardiovascular No syncope 02/04/2017 Respiratory No productive sputum 2016 Respiratory No chest congestion 2016 Respiratory No chest tightness 2016 Respiratory No cough 02/04/2017 Respiratory No dyspnea 02/04/2017 Gastrointestinal No abdominal pain 2016 Gastrointestinal dyspepsia 02/04/2017 Gastrointestinal gastroesophageal reflux 02/04/2017 Musculoskeletal No joint complaint 2016 Neurologic No alteration of consciousness 02/04/2017 Psychiatric No anxiety 02/04/2017 Psychiatric No depression 02/04/2017 Endocrine sweating 02/04/2017 Constitutional recent illness 12/12/2016 Constitutional No anorexia 12/12/2016 Constitutional No night sweats 2016 Constitutional No chills 12/12/2016 Constitutional No diaphoresis 12/12/2016 Constitutional No fatigue 12/12/2016 Constitutional No fever 12/12/2016 Constitutional No insomnia 12/12/2016 Constitutional No malaise 12/12/2016 Constitutional No weight loss 12/12/2016 Constitutional No weight gain 12/12/2016 Eyes No eye discharge 12/12/2016 Eyes No eye erythema 12/12/2016 Ears/Nose/Throat/Neck No dizziness 2016 Ears/Nose/Throat/Neck No headache 2016 Cardiovascular No chest pain/pressure 07/2017 Cardiovascular No dyspnea 12/12/2016 Respiratory No cough 12/12/2016 Gastrointestinal abdominal pain 2016 Gastrointestinal No constipation 2016 Gastrointestinal diarrhea 12/12/2016 Gastrointestinal gas and bloating 2016 Gastrointestinal No vomiting 12/12/2016 Gastrointestinal No nausea 12/12/2016 Genitourinary/Nephrology No dysuria 12/12 Genitourinary/Nephrology pelvic pain 07/2017 Genitourinary/Nephrology vaginal discharge 12/12/2016 Musculoskeletal No joint complaint 2016 Dermatologic No rash 12/12/2016 Neurologic No alteration of consciousness 12/12/2016 Constitutional No recent illness 2016 Constitutional No fatigue 11/10/2016 Constitutional No fever 11/10/2016 Constitutional No insomnia 11/10/2016 Eyes No eye discharge 11/10/2016 Eyes No eye erythema 11/10/2016 Ears/Nose/Throat/Neck No headache 2016 Cardiovascular No chest pain/pressure 05/2017 Cardiovascular No edema 11/10/2016 Cardiovascular hypertension 11/10/2016 Cardiovascular No near-syncope/dizziness 11/10/2016 Cardiovascular No syncope 11/10/2016 Respiratory No productive sputum 2016 Respiratory No chest congestion 2016 Respiratory No chest tightness 2016 Respiratory No cough 11/10/2016 Respiratory No dyspnea 11/10/2016 Gastrointestinal No abdominal pain 2016 Gastrointestinal No dyspepsia 11/10/2016 Gastrointestinal gastroesophageal reflux 11/10/2016 Musculoskeletal joint complaint 2016 Neurologic No alteration of consciousness 11/10/2016 Psychiatric No anxiety 11/10/2016 Psychiatric No depression 11/10/2016 Endocrine sweating 11/10/2016 Musculoskeletal arthralgia(s) 11/10/2016 Musculoskeletal stiffness 11/10/2016 Constitutional No recent illness 2016 Constitutional No chills 10/17/2016 Constitutional No diaphoresis 10/17/2016 Constitutional No fever 10/17/2016 Eyes No eye erythema 10/17/2016 Ears/Nose/Throat/Neck No nasal allergies 10/17/2016 Ears/Nose/Throat/Neck No nasal discharge 10/17/2016 Cardiovascular No chest pain/pressure Cardiovascular No dyspnea 10/17/2016 Respiratory No cough 10/17/2016 Respiratory No dyspnea 10/17/2016 Gastrointestinal No abdominal pain 2016 Musculoskeletal No joint complaint 2016 Dermatologic No rash 10/17/2016 Neurologic No alteration of consciousness 10/17/2016 Neurologic No mental status change 2016 Constitutional No recent illness 2016 Constitutional No fatigue 10/13/2016 Constitutional No fever 10/13/2016 Constitutional No insomnia 10/13/2016 Eyes No eye discharge 10/13/2016 Eyes No eye erythema 10/13/2016 Ears/Nose/Throat/Neck No headache 2016 Cardiovascular No chest pain/pressure Cardiovascular No edema 10/13/2016 Cardiovascular hypertension 10/13/2016 Cardiovascular No near-syncope/dizziness 10/13/2016 Cardiovascular No syncope 10/13/2016 Respiratory No productive sputum 2016 Respiratory No chest congestion 2016 Respiratory No chest tightness 2016 Respiratory No cough 10/13/2016 Respiratory No dyspnea 10/13/2016 Gastrointestinal No abdominal pain 2016 Gastrointestinal No dyspepsia 10/13/2016 Gastrointestinal gastroesophageal reflux 10/13/2016 Musculoskeletal No joint complaint 2016 Neurologic No alteration of consciousness 10/13/2016 Psychiatric No anxiety 10/13/2016 Psychiatric No depression 10/13/2016 Endocrine sweating 10/13/2016 Constitutional No recent illness 2015 Constitutional No fatigue 05/05/2016 Constitutional No fever 05/05/2016 Constitutional No insomnia 05/05/2016 Eyes No eye discharge 05/05/2016 Eyes No eye erythema 05/05/2016 Ears/Nose/Throat/Neck No headache 2015 Cardiovascular No chest pain/pressure 10/2015 Cardiovascular No edema 05/05/2016 Cardiovascular hypertension 05/05/2016 Cardiovascular No near-syncope/dizziness 05/05/2016 Cardiovascular No syncope 05/05/2016 Respiratory No productive sputum 2015 Respiratory No chest congestion 2015 Respiratory No chest tightness 2015 Respiratory No cough 05/05/2016 Respiratory No dyspnea 05/05/2016 Gastrointestinal No abdominal pain 2015 Gastrointestinal gastroesophageal reflux 05/05/2016 Musculoskeletal No joint complaint 2015 Neurologic No alteration of consciousness 05/05/2016 Psychiatric No anxiety 05/05/2016 Psychiatric No depression 05/05/2016 Endocrine sweating 05/05/2016 Gastrointestinal No dyspepsia 05/05/2016 Constitutional No recent illness 2015 Constitutional No fatigue 04/21/2016 Constitutional No fever 04/21/2016 Constitutional No insomnia 04/21/2016 Eyes No eye discharge 04/21/2016 Eyes No eye erythema 04/21/2016 Ears/Nose/Throat/Neck No headache 2015 Cardiovascular No chest pain/pressure Cardiovascular No edema 04/21/2016 Cardiovascular hypertension 04/21/2016 Cardiovascular No near-syncope/dizziness 04/21/2016 Cardiovascular No syncope 04/21/2016 Respiratory No productive sputum 2015 Respiratory No chest congestion 2015 Respiratory No chest tightness 2015 Respiratory No cough 04/21/2016 Respiratory No dyspnea 04/21/2016 Gastrointestinal No abdominal pain 2015 Gastrointestinal No dyspepsia 04/21/2016 Gastrointestinal gastroesophageal reflux 04/21/2016 Musculoskeletal No joint complaint 2015 Neurologic No alteration of consciousness 04/21/2016 Psychiatric No anxiety 04/21/2016 Psychiatric No depression 04/21/2016 Endocrine sweating 04/21/2016 Constitutional No recent illness 2015 Constitutional No fatigue 10/02/2015 Constitutional No fever 10/02/2015 Constitutional No insomnia 10/02/2015 Eyes No eye discharge 10/02/2015 Eyes No eye erythema 10/02/2015 Ears/Nose/Throat/Neck No headache 2015 Cardiovascular No chest pain/pressure 08/2015 Cardiovascular No edema 10/02/2015 Cardiovascular hypertension 10/02/2015 Cardiovascular No near-syncope/dizziness 10/02/2015 Cardiovascular No syncope 10/02/2015 Respiratory No productive sputum 2015 Respiratory No chest congestion 2015 Respiratory No chest tightness 2015 Respiratory No cough 10/02/2015 Respiratory No dyspnea 10/02/2015 Gastrointestinal No abdominal pain 2015 Gastrointestinal No constipation 2015 Gastrointestinal diarrhea 10/02/2015 Gastrointestinal dyspepsia 10/02/2015 Gastrointestinal gastroesophageal reflux 10/02/2015 Genitourinary/Nephrology No breast complaint 10/02/2015 Genitourinary/Nephrology No dysuria 10/01 Genitourinary/Nephrology No hematuria 08/2015 Genitourinary/Nephrology No menopausal symptoms 10/02/2015 Genitourinary/Nephrology No nocturia 08/2015 Genitourinary/Nephrology No Pap smear abnormality 10/02/2015 Genitourinary/Nephrology No urinary urgency 10/02/2015 Genitourinary/Nephrology No urinary frequency 10/02/2015 Genitourinary/Nephrology No urinary incontinence 10/02/2015 Genitourinary/Nephrology No vaginal discharge 10/02/2015 Musculoskeletal No joint complaint 2015 Dermatologic pigmentation change 2015 Dermatologic rash 10/02/2015 Neurologic No alteration of consciousness 10/02/2015 Psychiatric No anxiety 10/02/2015 Psychiatric No depression 10/02/2015 Endocrine sweating 10/02/2015 Constitutional No recent illness 2015 Constitutional No fatigue 08/09/2015 Constitutional No fever 08/09/2015 Constitutional No insomnia 08/09/2015 Eyes No eye discharge 08/09/2015 Eyes No eye erythema 08/09/2015 Ears/Nose/Throat/Neck No headache 2015 Cardiovascular No chest pain/pressure 02/2016 Cardiovascular No edema 08/09/2015 Cardiovascular hypertension 08/09/2015 Cardiovascular No near-syncope/dizziness 08/09/2015 Cardiovascular No syncope 08/09/2015 Respiratory No productive sputum 2015 Respiratory No chest congestion 2015 Respiratory No chest tightness 2015 Respiratory No cough 08/09/2015 Respiratory No dyspnea 08/09/2015 Gastrointestinal No abdominal pain 2015 Gastrointestinal No constipation 2015 Gastrointestinal No diarrhea 08/09/2015 Gastrointestinal dyspepsia 08/09/2015 Gastrointestinal gastroesophageal reflux 08/09/2015 Genitourinary/Nephrology No breast complaint 08/09/2015 Genitourinary/Nephrology No dysuria 08/09 Genitourinary/Nephrology No hematuria 02/2016 Genitourinary/Nephrology No menopausal symptoms 08/09/2015 Genitourinary/Nephrology No nocturia 02/2016 Genitourinary/Nephrology No Pap smear abnormality 08/09/2015 Genitourinary/Nephrology No urinary urgency 08/09/2015 Genitourinary/Nephrology No urinary frequency 08/09/2015 Genitourinary/Nephrology No urinary incontinence 08/09/2015 Genitourinary/Nephrology No vaginal discharge 08/09/2015 Musculoskeletal No joint complaint 2015 Dermatologic pigmentation change 2015 Dermatologic rash 08/09/2015 Neurologic No alteration of consciousness 08/09/2015 Psychiatric No anxiety 08/09/2015 Psychiatric No depression 08/09/2015 Endocrine sweating 08/09/2015 Constitutional No recent illness 2014 Constitutional No fatigue 03/14/2015 Constitutional No fever 03/14/2015 Constitutional No insomnia 03/14/2015 Eyes No eye discharge 03/14/2015 Eyes No eye erythema 03/14/2015 Ears/Nose/Throat/Neck No headache 2014 Cardiovascular No chest pain/pressure 07/2015 Cardiovascular No edema 03/14/2015 Cardiovascular hypertension 03/14/2015 Cardiovascular No near-syncope/dizziness 03/14/2015 Cardiovascular No syncope 03/14/2015 Respiratory No productive sputum 2014 Respiratory No chest congestion 2014 Respiratory No chest tightness 2014 Respiratory No cough 03/14/2015 Respiratory No dyspnea 03/14/2015 Gastrointestinal No abdominal pain 2014 Gastrointestinal No constipation 2014 Gastrointestinal No diarrhea 03/14/2015 Gastrointestinal dyspepsia 03/14/2015 Gastrointestinal gastroesophageal reflux 03/14/2015 Genitourinary/Nephrology No breast complaint 03/14/2015 Genitourinary/Nephrology No dysuria 03/14 Genitourinary/Nephrology No hematuria 07/2015 Genitourinary/Nephrology No menopausal symptoms 03/14/2015 Genitourinary/Nephrology No nocturia 07/2015 Genitourinary/Nephrology No Pap smear abnormality 03/14/2015 Genitourinary/Nephrology No urinary urgency 03/14/2015 Genitourinary/Nephrology No urinary frequency 03/14/2015 Genitourinary/Nephrology No urinary incontinence 03/14/2015 Genitourinary/Nephrology No vaginal discharge 03/14/2015 Musculoskeletal No joint complaint 2014 Dermatologic pigmentation change 2014 Dermatologic rash 03/14/2015 Neurologic No alteration of consciousness 03/14/2015 Psychiatric No anxiety 03/14/2015 Psychiatric No depression 03/14/2015 Endocrine sweating 03/14/2015 Constitutional No recent illness 2014 Constitutional No anorexia 12/26/2014 Constitutional No night sweats 2014 Constitutional No chills 12/26/2014 Constitutional No diaphoresis 12/26/2014 Constitutional No fatigue 12/26/2014 Constitutional No fever 12/26/2014 Constitutional No insomnia 12/26/2014 Constitutional No malaise 12/26/2014 Constitutional No weight loss 12/26/2014 Constitutional No weight gain 12/26/2014 Eyes No eye discharge 12/26/2014 Eyes No eye erythema 12/26/2014 Ears/Nose/Throat/Neck No headache 2014 Respiratory No cough 12/26/2014 Gastrointestinal No constipation 2014 Gastrointestinal No diarrhea 12/26/2014 Musculoskeletal back pain 12/26/2014 Dermatologic No rash 12/26/2014 Dermatologic No sores 12/26/2014 Respiratory No dyspnea 12/26/2014 Respiratory No dyspnea on exertion 2014 Constitutional No recent illness 2014 Constitutional No fatigue 11/06/2014 Constitutional No fever 11/06/2014 Constitutional No insomnia 11/06/2014 Eyes No eye discharge 11/06/2014 Eyes No eye erythema 11/06/2014 Ears/Nose/Throat/Neck No headache 2014 Cardiovascular No chest pain/pressure 01/2015 Cardiovascular No edema 11/06/2014 Cardiovascular hypertension 11/06/2014 Cardiovascular No near-syncope/dizziness 11/06/2014 Cardiovascular No syncope 11/06/2014 Respiratory No productive sputum 2014 Respiratory No chest congestion 2014 Respiratory No chest tightness 2014 Respiratory No cough 11/06/2014 Respiratory No dyspnea 11/06/2014 Gastrointestinal No abdominal pain 2014 Gastrointestinal No constipation 2014 Gastrointestinal No diarrhea 11/06/2014 Gastrointestinal dyspepsia 11/06/2014 Gastrointestinal gastroesophageal reflux 11/06/2014 Genitourinary/Nephrology No breast complaint 11/06/2014 Genitourinary/Nephrology No dysuria 11/06 Genitourinary/Nephrology No hematuria 01/2015 Genitourinary/Nephrology No menopausal symptoms 11/06/2014 Genitourinary/Nephrology No nocturia 01/2015 Genitourinary/Nephrology No Pap smear abnormality 11/06/2014 Genitourinary/Nephrology No urinary urgency 11/06/2014 Genitourinary/Nephrology No urinary frequency 11/06/2014 Genitourinary/Nephrology No urinary incontinence 11/06/2014 Genitourinary/Nephrology No vaginal discharge 11/06/2014 Musculoskeletal No joint complaint 2014 Dermatologic pigmentation change 2014 Dermatologic rash 11/06/2014 Neurologic No alteration of consciousness 11/06/2014 Psychiatric No anxiety 11/06/2014 Psychiatric No depression 11/06/2014 Constitutional No fatigue 10/23/2014 Constitutional No fever 10/23/2014 Constitutional No insomnia 10/23/2014 Constitutional No recent illness 2014 Eyes No eye discharge 10/23/2014 Eyes No eye erythema 10/23/2014 Ears/Nose/Throat/Neck No headache 2014 Cardiovascular No chest pain/pressure Cardiovascular No edema 10/23/2014 Cardiovascular No near-syncope/dizziness 10/23/2014 Cardiovascular No syncope 10/23/2014 Respiratory No chest congestion 2014 Respiratory No chest tightness 2014 Respiratory No cough 10/23/2014 Respiratory No dyspnea 10/23/2014 Respiratory No productive sputum 2014 Gastrointestinal No abdominal pain 2014 Gastrointestinal No constipation 2014 Gastrointestinal No diarrhea 10/23/2014 Genitourinary/Nephrology No breast complaint 10/23/2014 Genitourinary/Nephrology No dysuria 10/23 Genitourinary/Nephrology No hematuria Genitourinary/Nephrology No urinary frequency 10/23/2014 Genitourinary/Nephrology No urinary incontinence 10/23/2014 Genitourinary/Nephrology No urinary urgency 10/23/2014 Genitourinary/Nephrology No vaginal discharge 10/23/2014 Genitourinary/Nephrology No menopausal symptoms 10/23/2014 Genitourinary/Nephrology No nocturia Genitourinary/Nephrology No Pap smear abnormality 10/23/2014 Musculoskeletal No joint complaint 2014 Neurologic No alteration of consciousness 10/23/2014 Dermatologic rash 10/23/2014 Dermatologic pigmentation change 2014 Psychiatric No anxiety 10/23/2014 Psychiatric No depression 10/23/2014 Cardiovascular hypertension 10/23/2014 Gastrointestinal dyspepsia 10/23/2014 Gastrointestinal gastroesophageal reflux 10/23/2014 Physical Exam Exam Name System Name Item Name Status Result Effective Dates Notes Full Exam - General 1994 Constitutional general appearance Development: well developed 08/20/2017 None Full Exam - General 1994 Constitutional general appearance Development: appears stated age 0108/20/2017 None Full Exam - General 1994 Constitutional general appearance Hygiene/Attention to Grooming: good hygiene 08/20/2017 None Full Exam - General 1994 Eyes conjunctiva /eyelids Overall: conjunctiva clear 08/20/2017 None Full Exam - General 1994 Eyes conjunctiva /eyelids Overall: cornea clear 08/20/2017 None Full Exam - General 1994 Eyes conjunctiva /eyelids Overall: eyelids normal 08/20/2017 None Full Exam - General 1994 Eyes pupils and irises Overall: pupils equal, round, reactive to light and accomodation 08/20/2017 None Full Exam - General 1994 Ears/Nose/Throat otoscopic exam Overall: external auditory canals clear 08/20/2017 None Full Exam - General 1994 Ears/Nose/Throat otoscopic exam Overall: tympanic membranes clear 08/20/2017 None Full Exam - General 1994 Ears/Nose/Throat lips/teeth/gingiva Overall: benign lips 08/20/2017 None Full Exam - General 1994 Ears/Nose/Throat lips/teeth/gingiva Overall: normal dentition 08/20/2017 None Full Exam - General 1994 Ears/Nose/Throat oral cavity/pharynx/larynx Overall: oral mucosa clear 08/20/2017 None Full Exam - General 1994 Ears/Nose/Throat oral cavity/pharynx/larynx Overall: oropharyngeal mucosa clear 08/20/2017 None Full Exam - General 1994 Ears/Nose/Throat oral cavity/pharynx/larynx Overall: hypopharynx benign 08/20/2017 None Full Exam - General 1994 Ears/Nose/Throat oral cavity/pharynx/larynx Overall: no masses 08/20/2017 None Full Exam - General 1994 Respiratory auscultation Overall: breath sounds clear bilaterally 08/20/2017 None Full Exam - General 1994 Respiratory respiratory effort/rhythm Overall: no retractions 08/20/2017 None Full Exam - General 1994 Respiratory respiratory effort/rhythm Overall: normal rate 08/20/2017 None Full Exam - General 1994 Cardiovascular extremities Overall: no clubbing 08/20/2017 None Full Exam - General 1994 Cardiovascular auscultation of heart Overall: regular rate 08/20/2017 None Full Exam - General 1994 Cardiovascular auscultation of heart Overall: normal heart sounds 08/20/2017 None Full Exam - General 1994 Abdomen abdominal exam Overall: no tenderness 08/20/2017 None Full Exam - General 1994 Abdomen abdominal exam Overall: normal bowel sounds 08/20/2017 None Full Exam - General 1994 Musculoskeletal spine, ribs and pelvis Overall: good posture 08/20/2017 None Full Exam - General 1994 Musculoskeletal head and neck Overall: head atraumatic 08/20/2017 None Full Exam - General 1994 Musculoskeletal head and neck Overall: cervical spine benign 08/20/2017 None Full Exam - General 1994 Neurologic deep tendon reflexes Overall: deep tendon reflexes intact 08/20/2017 None Full Exam - General 1994 Neurologic cranial nerves Overall: crainial nerves 2 - 12 grossly intact 08/20/2017 None Full Exam - General 1994 Psychiatric orientation/consciousness Overall: oriented to person, place and time 08/20/2017 None Full Exam - General 1994 Psychiatric mood and affect Overall: normal mood and affect 08/20/2017 None Full Exam - General 1994 Constitutional general appearance Development: well developed 05/18/2017 None Full Exam - General 1994 Constitutional general appearance Development: appears stated age 1005/18/2017 None Full Exam - General 1994 Constitutional general appearance Hygiene/Attention to Grooming: good hygiene 05/18/2017 None Full Exam - General 1994 Eyes conjunctiva /eyelids Overall: conjunctiva clear 05/18/2017 None Full Exam - General 1994 Eyes conjunctiva /eyelids Overall: cornea clear 05/18/2017 None Full Exam - General 1994 Eyes conjunctiva /eyelids Overall: eyelids normal 05/18/2017 None Full Exam - General 1994 Eyes pupils and irises Overall: pupils equal, round, reactive to light and accomodation 05/18/2017 None Full Exam - General 1994 Ears/Nose/Throat otoscopic exam Overall: external auditory canals clear 05/18/2017 None Full Exam - General 1994 Ears/Nose/Throat otoscopic exam Overall: tympanic membranes clear 05/18/2017 None Full Exam - General 1994 Ears/Nose/Throat lips/teeth/gingiva Overall: benign lips 05/18/2017 None Full Exam - General 1994 Ears/Nose/Throat lips/teeth/gingiva Overall: normal dentition 05/18/2017 None Full Exam - General 1994 Ears/Nose/Throat oral cavity/pharynx/larynx Overall: oral mucosa clear 05/18/2017 None Full Exam - General 1994 Ears/Nose/Throat oral cavity/pharynx/larynx Overall: oropharyngeal mucosa clear 05/18/2017 None Full Exam - General 1994 Ears/Nose/Throat oral cavity/pharynx/larynx Overall: hypopharynx benign 05/18/2017 None Full Exam - General 1994 Ears/Nose/Throat oral cavity/pharynx/larynx Overall: no masses 05/18/2017 None Full Exam - General 1994 Respiratory auscultation Overall: breath sounds clear bilaterally 05/18/2017 None Full Exam - General 1994 Respiratory respiratory effort/rhythm Overall: no retractions 05/18/2017 None Full Exam - General 1994 Respiratory respiratory effort/rhythm Overall: normal rate 05/18/2017 None Full Exam - General 1994 Cardiovascular extremities Overall: no clubbing 05/18/2017 None Full Exam - General 1994 Cardiovascular auscultation of heart Overall: regular rate 05/18/2017 None Full Exam - General 1994 Cardiovascular auscultation of heart Overall: normal heart sounds 05/18/2017 None Full Exam - General 1994 Abdomen abdominal exam Overall: no tenderness 05/18/2017 None Full Exam - General 1994 Abdomen abdominal exam Overall: normal bowel sounds 05/18/2017 None Full Exam - General 1994 Musculoskeletal spine, ribs and pelvis Overall: good posture 05/18/2017 None Full Exam - General 1994 Musculoskeletal head and neck Overall: head atraumatic 05/18/2017 None Full Exam - General 1994 Musculoskeletal head and neck Overall: cervical spine benign 05/18/2017 None Full Exam - General 1994 Neurologic deep tendon reflexes Overall: deep tendon reflexes intact 05/18/2017 None Full Exam - General 1994 Neurologic cranial nerves Overall: crainial nerves 2 - 12 grossly intact 05/18/2017 None Full Exam - General 1994 Psychiatric orientation/consciousness Overall: oriented to person, place and time 05/18/2017 None Full Exam - General 1994 Psychiatric mood and affect Overall: normal mood and affect 05/18/2017 None Full Exam - General 1994 Constitutional general appearance Development: well developed 02/04/2017 None Full Exam - General 1994 Constitutional general appearance Development: appears stated age 0702/04/2017 None Full Exam - General 1994 Constitutional general appearance Hygiene/Attention to Grooming: good hygiene 02/04/2017 None Full Exam - General 1994 Eyes conjunctiva /eyelids Overall: conjunctiva clear 02/04/2017 None Full Exam - General 1994 Eyes conjunctiva /eyelids Overall: cornea clear 02/04/2017 None Full Exam - General 1994 Eyes conjunctiva /eyelids Overall: eyelids normal 02/04/2017 None Full Exam - General 1994 Eyes pupils and irises Overall: pupils equal, round, reactive to light and accomodation 02/04/2017 None Full Exam - General 1994 Ears/Nose/Throat otoscopic exam Overall: external auditory canals clear 02/04/2017 None Full Exam - General 1994 Ears/Nose/Throat otoscopic exam Overall: tympanic membranes clear 02/04/2017 None Full Exam - General 1994 Ears/Nose/Throat lips/teeth/gingiva Overall: benign lips 02/04/2017 None Full Exam - General 1994 Ears/Nose/Throat lips/teeth/gingiva Overall: normal dentition 02/04/2017 None Full Exam - General 1994 Ears/Nose/Throat oral cavity/pharynx/larynx Overall: oral mucosa clear 02/04/2017 None Full Exam - General 1994 Ears/Nose/Throat oral cavity/pharynx/larynx Overall: oropharyngeal mucosa clear 02/04/2017 None Full Exam - General 1994 Ears/Nose/Throat oral cavity/pharynx/larynx Overall: hypopharynx benign 02/04/2017 None Full Exam - General 1994 Ears/Nose/Throat oral cavity/pharynx/larynx Overall: no masses 02/04/2017 None Full Exam - General 1994 Respiratory auscultation Overall: breath sounds clear bilaterally 02/04/2017 None Full Exam - General 1994 Respiratory respiratory effort/rhythm Overall: no retractions 02/04/2017 None Full Exam - General 1994 Respiratory respiratory effort/rhythm Overall: normal rate 02/04/2017 None Full Exam - General 1994 Cardiovascular extremities Overall: no clubbing 02/04/2017 None Full Exam - General 1994 Cardiovascular auscultation of heart Overall: regular rate 02/04/2017 None Full Exam - General 1994 Cardiovascular auscultation of heart Overall: normal heart sounds 02/04/2017 None Full Exam - General 1994 Abdomen abdominal exam Overall: no tenderness 02/04/2017 None Full Exam - General 1994 Abdomen abdominal exam Overall: normal bowel sounds 02/04/2017 None Full Exam - General 1994 Musculoskeletal spine, ribs and pelvis Overall: good posture 02/04/2017 None Full Exam - General 1994 Musculoskeletal head and neck Overall: head atraumatic 02/04/2017 None Full Exam - General 1994 Musculoskeletal head and neck Overall: cervical spine benign 02/04/2017 None Full Exam - General 1994 Neurologic deep tendon reflexes Overall: deep tendon reflexes intact 02/04/2017 None Full Exam - General 1994 Neurologic cranial nerves Overall: crainial nerves 2 - 12 grossly intact 02/04/2017 None Full Exam - General 1994 Psychiatric orientation/consciousness Overall: oriented to person, place and time 02/04/2017 None Full Exam - General 1994 Psychiatric mood and affect Overall: normal mood and affect 02/04/2017 None Full Exam - General 1994 Constitutional general appearance Development: well developed 12/12/2016 None Full Exam - General 1994 Constitutional general appearance Development: appears stated age 0512/12/2016 None Full Exam - General 1994 Constitutional general appearance Hygiene/Attention to Grooming: good hygiene 12/12/2016 None Full Exam - General 1994 Eyes conjunctiva /eyelids Overall: conjunctiva clear 12/12/2016 None Full Exam - General 1994 Eyes conjunctiva /eyelids Overall: cornea clear 12/12/2016 None Full Exam - General 1994 Eyes conjunctiva /eyelids Overall: eyelids normal 12/12/2016 None Full Exam - General 1994 Eyes pupils and irises Overall: pupils equal, round, reactive to light and accomodation 12/12/2016 None Full Exam - General 1994 Ears/Nose/Throat otoscopic exam Overall: external auditory canals clear 12/12/2016 None Full Exam - General 1994 Ears/Nose/Throat otoscopic exam Overall: tympanic membranes clear 12/12/2016 None Full Exam - General 1994 Ears/Nose/Throat lips/teeth/gingiva Overall: benign lips 12/12/2016 None Full Exam - General 1994 Ears/Nose/Throat lips/teeth/gingiva Overall: normal dentition 12/12/2016 None Full Exam - General 1994 Ears/Nose/Throat oral cavity/pharynx/larynx Overall: oral mucosa clear 12/12/2016 None Full Exam - General 1994 Ears/Nose/Throat oral cavity/pharynx/larynx Overall: oropharyngeal mucosa clear 12/12/2016 None Full Exam - General 1994 Ears/Nose/Throat oral cavity/pharynx/larynx Overall: hypopharynx benign 12/12/2016 None Full Exam - General 1994 Ears/Nose/Throat oral cavity/pharynx/larynx Overall: no masses 12/12/2016 None Full Exam - General 1994 Respiratory auscultation Overall: breath sounds clear bilaterally 12/12/2016 None Full Exam - General 1994 Respiratory respiratory effort/rhythm Overall: no retractions 12/12/2016 None Full Exam - General 1994 Respiratory respiratory effort/rhythm Overall: normal rate 12/12/2016 None Full Exam - General 1994 Cardiovascular extremities Overall: no clubbing 12/12/2016 None Full Exam - General 1994 Cardiovascular auscultation of heart Overall: regular rate 12/12/2016 None Full Exam - General 1994 Cardiovascular auscultation of heart Overall: normal heart sounds 12/12/2016 None Full Exam - General 1994 Abdomen abdominal exam Overall: no tenderness 12/12/2016 None Full Exam - General 1994 Abdomen abdominal exam Overall: normal bowel sounds 12/12/2016 None Full Exam - General 1994 Musculoskeletal spine, ribs and pelvis Overall: good posture 12/12/2016 None Full Exam - General 1994 Musculoskeletal head and neck Overall: head atraumatic 12/12/2016 None Full Exam - General 1994 Musculoskeletal head and neck Overall: cervical spine benign 12/12/2016 None Full Exam - General 1994 Neurologic deep tendon reflexes Overall: deep tendon reflexes intact 12/12/2016 None Full Exam - General 1994 Neurologic cranial nerves Overall: crainial nerves 2 - 12 grossly intact 12/12/2016 None Full Exam - General 1994 Psychiatric orientation/consciousness Overall: oriented to person, place and time 12/12/2016 None Full Exam - General 1994 Psychiatric mood and affect Overall: normal mood and affect 12/12/2016 None Full Exam - General 1994 Genitourinary uterus Overall: surgically absent 12/12/2016 None Full Exam - General 1994 Genitourinary cervix Overall: surgically absent 12/12/2016 None Full Exam - General 1994 Genitourinary labia and vagina Labia: no lesions present 12/12/2016 None Full Exam - General 1994 Genitourinary labia and vagina Vagina: erythematous 12/12/2016 area of erythema and bleeding in vaginal canal at approx 6 o'clock Full Exam - General 1994 Genitourinary adnexa/parametria Overall: surgically absent 12/12/2016 None Full Exam - General 1994 Genitourinary urethra Overall: no masses 12/12/2016 None Full Exam - General 1994 Constitutional general appearance Development: well developed 11/10/2016 None Full Exam - General 1994 Constitutional general appearance Development: appears stated age 0411/10/2016 None Full Exam - General 1994 Constitutional general appearance Hygiene/Attention to Grooming: good hygiene 11/10/2016 None Full Exam - General 1994 Eyes conjunctiva /eyelids Overall: conjunctiva clear 11/10/2016 None Full Exam - General 1994 Eyes conjunctiva /eyelids Overall: cornea clear 11/10/2016 None Full Exam - General 1994 Eyes conjunctiva /eyelids Overall: eyelids normal 11/10/2016 None Full Exam - General 1994 Eyes pupils and irises Overall: pupils equal, round, reactive to light and accomodation 11/10/2016 None Full Exam - General 1994 Ears/Nose/Throat otoscopic exam Overall: external auditory canals clear 11/10/2016 None Full Exam - General 1994 Ears/Nose/Throat otoscopic exam Overall: tympanic membranes clear 11/10/2016 None Full Exam - General 1994 Ears/Nose/Throat lips/teeth/gingiva Overall: benign lips 11/10/2016 None Full Exam - General 1994 Ears/Nose/Throat lips/teeth/gingiva Overall: normal dentition 11/10/2016 None Full Exam - General 1994 Ears/Nose/Throat oral cavity/pharynx/larynx Overall: oral mucosa clear 11/10/2016 None Full Exam - General 1994 Ears/Nose/Throat oral cavity/pharynx/larynx Overall: oropharyngeal mucosa clear 11/10/2016 None Full Exam - General 1994 Ears/Nose/Throat oral cavity/pharynx/larynx Overall: hypopharynx benign 11/10/2016 None Full Exam - General 1994 Ears/Nose/Throat oral cavity/pharynx/larynx Overall: no masses 11/10/2016 None Full Exam - General 1994 Respiratory auscultation Overall: breath sounds clear bilaterally 11/10/2016 None Full Exam - General 1994 Respiratory respiratory effort/rhythm Overall: no retractions 11/10/2016 None Full Exam - General 1994 Respiratory respiratory effort/rhythm Overall: normal rate 11/10/2016 None Full Exam - General 1994 Cardiovascular extremities Overall: no clubbing 11/10/2016 None Full Exam - General 1994 Cardiovascular auscultation of heart Overall: regular rate 11/10/2016 None Full Exam - General 1994 Cardiovascular auscultation of heart Overall: normal heart sounds 11/10/2016 None Full Exam - General 1994 Abdomen abdominal exam Overall: no tenderness 11/10/2016 None Full Exam - General 1994 Abdomen abdominal exam Overall: normal bowel sounds 11/10/2016 None Full Exam - General 1994 Musculoskeletal spine, ribs and pelvis Overall: good posture 11/10/2016 None Full Exam - General 1994 Musculoskeletal head and neck Overall: head atraumatic 11/10/2016 None Full Exam - General 1994 Musculoskeletal head and neck Overall: cervical spine benign 11/10/2016 None Full Exam - General 1994 Neurologic deep tendon reflexes Overall: deep tendon reflexes intact 11/10/2016 None Full Exam - General 1994 Neurologic cranial nerves Overall: crainial nerves 2 - 12 grossly intact 11/10/2016 None Full Exam - General 1994 Psychiatric orientation/consciousness Overall: oriented to person, place and time 11/10/2016 None Full Exam - General 1994 Psychiatric mood and affect Overall: normal mood and affect 11/10/2016 None Full Exam - General 1994 Constitutional general appearance Overall: well developed 10/17/2016 None Full Exam - General 1994 Constitutional general appearance Overall: in no acute distress 10/17/2016 None Full Exam - General 1994 Constitutional general appearance Overall: well nourished 10/17/2016 None Full Exam - General 1994 Eyes conjunctiva /eyelids Overall: conjunctiva clear 10/17/2016 None Full Exam - General 1994 Eyes conjunctiva /eyelids Overall: eyelids normal 10/17/2016 None Full Exam - General 1994 Ears/Nose/Throat lips/teeth/gingiva Overall: benign lips 10/17/2016 None Full Exam - General 1994 Ears/Nose/Throat oral cavity/pharynx/larynx Overall: oral mucosa clear 10/17/2016 None Full Exam - General 1994 Respiratory auscultation Overall: breath sounds clear bilaterally 10/17/2016 None Full Exam - General 1994 Respiratory respiratory effort/rhythm Overall: no retractions 10/17/2016 None Full Exam - General 1994 Respiratory respiratory effort/rhythm Overall: normal rate 10/17/2016 None Full Exam - General 1994 Cardiovascular extremities Overall: no clubbing 10/17/2016 None Full Exam - General 1994 Cardiovascular auscultation of heart Overall: regular rate 10/17/2016 None Full Exam - General 1994 Cardiovascular auscultation of heart Overall: normal heart sounds 10/17/2016 None Full Exam - General 1994 Musculoskeletal head and neck Overall: head atraumatic 10/17/2016 None Full Exam - General 1994 Psychiatric orientation/consciousness Overall: oriented to person, place and time 10/17/2016 None Full Exam - General 1994 Psychiatric mood and affect Overall: normal mood and affect 10/17/2016 None Full Exam - General 1994 Psychiatric appearance Overall: well-groomed, good eye contact 10/17/2016 None Full Exam - General 1994 Constitutional general appearance Development: well developed 10/13/2016 None Full Exam - General 1994 Constitutional general appearance Development: appears stated age 0310/13/2016 None Full Exam - General 1994 Constitutional general appearance Hygiene/Attention to Grooming: good hygiene 10/13/2016 None Full Exam - General 1994 Eyes conjunctiva /eyelids Overall: conjunctiva clear 10/13/2016 None Full Exam - General 1994 Eyes conjunctiva /eyelids Overall: cornea clear 10/13/2016 None Full Exam - General 1994 Eyes conjunctiva /eyelids Overall: eyelids normal 10/13/2016 None Full Exam - General 1994 Eyes pupils and irises Overall: pupils equal, round, reactive to light and accomodation 10/13/2016 None Full Exam - General 1994 Ears/Nose/Throat otoscopic exam Overall: external auditory canals clear 10/13/2016 None Full Exam - General 1994 Ears/Nose/Throat otoscopic exam Overall: tympanic membranes clear 10/13/2016 None Full Exam - General 1994 Ears/Nose/Throat lips/teeth/gingiva Overall: benign lips 10/13/2016 None Full Exam - General 1995 Ears/Nose/Throat lips/teeth/gingiva Overall: normal dentition 10/13/2016 None Full Exam - General 1994 Ears/Nose/Throat oral cavity/pharynx/larynx Overall: oral mucosa clear 10/13/2016 None Full Exam - General 1995 Ears/Nose/Throat oral cavity/pharynx/larynx Overall: oropharyngeal mucosa clear 10/13/2016 None Full Exam - General 1994 Ears/Nose/Throat oral cavity/pharynx/larynx Overall: hypopharynx benign 10/13/2016 None Full Exam - General 1994 Ears/Nose/Throat oral cavity/pharynx/larynx Overall: no masses 10/13/2016 None Full Exam - General 1994 Respiratory auscultation Overall: breath sounds clear bilaterally 10/13/2016 None Full Exam - General 1994 Respiratory respiratory effort/rhythm Overall: no retractions 10/13/2016 None Full Exam - General 1994 Respiratory respiratory effort/rhythm Overall: normal rate 10/13/2016 None Full Exam - General 1994 Cardiovascular extremities Overall: no clubbing 10/13/2016 None Full Exam - General 1994 Cardiovascular auscultation of heart Overall: regular rate 10/13/2016 None Full Exam - General 1994 Cardiovascular auscultation of heart Overall: normal heart sounds 10/13/2016 None Full Exam - General 1994 Abdomen abdominal exam Overall: no tenderness 10/13/2016 None Full Exam - General 1994 Abdomen abdominal exam Overall: normal bowel sounds 10/13/2016 None Full Exam - General 1994 Musculoskeletal spine, ribs and pelvis Overall: good posture 10/13/2016 None Full Exam - General 1994 Musculoskeletal head and neck Overall: head atraumatic 10/13/2016 None Full Exam - General 1994 Musculoskeletal head and neck Overall: cervical spine benign 10/13/2016 None Full Exam - General 1994 Neurologic deep tendon reflexes Overall: deep tendon reflexes intact 10/13/2016 None Full Exam - General 1994 Neurologic cranial nerves Overall: crainial nerves 2 - 12 grossly intact 10/13/2016 None Full Exam - General 1994 Psychiatric orientation/consciousness Overall: oriented to person, place and time 10/13/2016 None Full Exam - General 1994 Psychiatric mood and affect Overall: normal mood and affect 10/13/2016 None Full Exam - General 1994 Constitutional general appearance Development: well developed 05/05/2016 None Full Exam - General 1994 Constitutional general appearance Development: appears stated age 1005/05/2016 None Full Exam - General 1994 Constitutional general appearance Hygiene/Attention to Grooming: good hygiene 05/05/2016 None Full Exam - General 1994 Eyes conjunctiva /eyelids Overall: conjunctiva clear 05/05/2016 None Full Exam - General 1994 Eyes conjunctiva /eyelids Overall: cornea clear 05/05/2016 None Full Exam - General 1994 Eyes conjunctiva /eyelids Overall: eyelids normal 05/05/2016 None Full Exam - General 1994 Eyes pupils and irises Overall: pupils equal, round, reactive to light and accomodation 05/05/2016 None Full Exam - General 1994 Ears/Nose/Throat otoscopic exam Overall: external auditory canals clear 05/05/2016 None Full Exam - General 1994 Ears/Nose/Throat otoscopic exam Overall: tympanic membranes clear 05/05/2016 None Full Exam - General 1994 Ears/Nose/Throat lips/teeth/gingiva Overall: benign lips 05/05/2016 None Full Exam - General 1994 Ears/Nose/Throat lips/teeth/gingiva Overall: normal dentition 05/05/2016 None Full Exam - General 1994 Ears/Nose/Throat oral cavity/pharynx/larynx Overall: oral mucosa clear 05/05/2016 None Full Exam - General 1994 Ears/Nose/Throat oral cavity/pharynx/larynx Overall: oropharyngeal mucosa clear 05/05/2016 None Full Exam - General 1994 Ears/Nose/Throat oral cavity/pharynx/larynx Overall: hypopharynx benign 05/05/2016 None Full Exam - General 1994 Ears/Nose/Throat oral cavity/pharynx/larynx Overall: no masses 05/05/2016 None Full Exam - General 1994 Respiratory auscultation Overall: breath sounds clear bilaterally 05/05/2016 None Full Exam - General 1994 Respiratory respiratory effort/rhythm Overall: no retractions 05/05/2016 None Full Exam - General 1994 Respiratory respiratory effort/rhythm Overall: normal rate 05/05/2016 None Full Exam - General 1994 Cardiovascular extremities Overall: no clubbing 05/05/2016 None Full Exam - General 1994 Cardiovascular auscultation of heart Overall: regular rate 05/05/2016 None Full Exam - General 1994 Cardiovascular auscultation of heart Overall: normal heart sounds 05/05/2016 None Full Exam - General 1994 Abdomen abdominal exam Overall: no tenderness 05/05/2016 None Full Exam - General 1994 Abdomen abdominal exam Overall: normal bowel sounds 05/05/2016 None Full Exam - General 1994 Musculoskeletal spine, ribs and pelvis Overall: good posture 05/05/2016 None Full Exam - General 1994 Musculoskeletal head and neck Overall: head atraumatic 05/05/2016 None Full Exam - General 1994 Musculoskeletal head and neck Overall: cervical spine benign 05/05/2016 None Full Exam - General 1994 Neurologic deep tendon reflexes Overall: deep tendon reflexes intact 05/05/2016 None Full Exam - General 1994 Neurologic cranial nerves Overall: crainial nerves 2 - 12 grossly intact 05/05/2016 None Full Exam - General 1994 Psychiatric orientation/consciousness Overall: oriented to person, place and time 05/05/2016 None Full Exam - General 1994 Psychiatric mood and affect Overall: normal mood and affect 05/05/2016 None Full Exam - General 1994 Constitutional general appearance Development: well developed 04/21/2016 None Full Exam - General 1994 Constitutional general appearance Development: appears stated age 0904/21/2016 None Full Exam - General 1994 Constitutional general appearance Hygiene/Attention to Grooming: good hygiene 04/21/2016 None Full Exam - General 1994 Eyes conjunctiva /eyelids Overall: conjunctiva clear 04/21/2016 None Full Exam - General 1994 Eyes conjunctiva /eyelids Overall: cornea clear 04/21/2016 None Full Exam - General 1994 Eyes conjunctiva /eyelids Overall: eyelids normal 04/21/2016 None Full Exam - General 1994 Eyes pupils and irises Overall: pupils equal, round, reactive to light and accomodation 04/21/2016 None Full Exam - General 1994 Ears/Nose/Throat otoscopic exam Overall: external auditory canals clear 04/21/2016 None Full Exam - General 1994 Ears/Nose/Throat otoscopic exam Overall: tympanic membranes clear 04/21/2016 None Full Exam - General 1994 Ears/Nose/Throat lips/teeth/gingiva Overall: benign lips 04/21/2016 None Full Exam - General 1994 Ears/Nose/Throat lips/teeth/gingiva Overall: normal dentition 04/21/2016 None Full Exam - General 1994 Ears/Nose/Throat oral cavity/pharynx/larynx Overall: oral mucosa clear 04/21/2016 None Full Exam - General 1994 Ears/Nose/Throat oral cavity/pharynx/larynx Overall: oropharyngeal mucosa clear 04/21/2016 None Full Exam - General 1994 Ears/Nose/Throat oral cavity/pharynx/larynx Overall: hypopharynx benign 04/21/2016 None Full Exam - General 1994 Ears/Nose/Throat oral cavity/pharynx/larynx Overall: no masses 04/21/2016 None Full Exam - General 1994 Respiratory auscultation Overall: breath sounds clear bilaterally 04/21/2016 None Full Exam - General 1994 Respiratory respiratory effort/rhythm Overall: no retractions 04/21/2016 None Full Exam - General 1994 Respiratory respiratory effort/rhythm Overall: normal rate 04/21/2016 None Full Exam - General 1994 Cardiovascular extremities Overall: no clubbing 04/21/2016 None Full Exam - General 1994 Cardiovascular auscultation of heart Overall: regular rate 04/21/2016 None Full Exam - General 1994 Cardiovascular auscultation of heart Overall: normal heart sounds 04/21/2016 None Full Exam - General 1994 Abdomen abdominal exam Overall: no tenderness 04/21/2016 None Full Exam - General 1994 Abdomen abdominal exam Overall: normal bowel sounds 04/21/2016 None Full Exam - General 1994 Musculoskeletal spine, ribs and pelvis Overall: good posture 04/21/2016 None Full Exam - General 1994 Musculoskeletal head and neck Overall: head atraumatic 04/21/2016 None Full Exam - General 1994 Musculoskeletal head and neck Overall: cervical spine benign 04/21/2016 None Full Exam - General 1994 Neurologic deep tendon reflexes Overall: deep tendon reflexes intact 04/21/2016 None Full Exam - General 1994 Neurologic cranial nerves Overall: crainial nerves 2 - 12 grossly intact 04/21/2016 None Full Exam - General 1994 Psychiatric orientation/consciousness Overall: oriented to person, place and time 04/21/2016 None Full Exam - General 1994 Psychiatric mood and affect Overall: normal mood and affect 04/21/2016 None Full Exam - General 1994 Constitutional general appearance Development: well developed 10/02/2015 None Full Exam - General 1994 Constitutional general appearance Development: appears stated age 0310/02/2015 None Full Exam - General 1994 Constitutional general appearance Hygiene/Attention to Grooming: good hygiene 10/02/2015 None Full Exam - General 1994 Eyes conjunctiva /eyelids Overall: conjunctiva clear 10/02/2015 None Full Exam - General 1994 Eyes conjunctiva /eyelids Overall: cornea clear 10/02/2015 None Full Exam - General 1994 Eyes conjunctiva /eyelids Overall: eyelids normal 10/02/2015 None Full Exam - General 1994 Eyes pupils and irises Overall: pupils equal, round, reactive to light and accomodation 10/02/2015 None Full Exam - General 1994 Ears/Nose/Throat otoscopic exam Overall: external auditory canals clear 10/02/2015 None Full Exam - General 1994 Ears/Nose/Throat otoscopic exam Overall: tympanic membranes clear 10/02/2015 None Full Exam - General 1994 Ears/Nose/Throat lips/teeth/gingiva Overall: benign lips 10/02/2015 None Full Exam - General 1994 Ears/Nose/Throat lips/teeth/gingiva Overall: normal dentition 10/02/2015 None Full Exam - General 1994 Ears/Nose/Throat oral cavity/pharynx/larynx Overall: oral mucosa clear 10/02/2015 None Full Exam - General 1994 Ears/Nose/Throat oral cavity/pharynx/larynx Overall: oropharyngeal mucosa clear 10/02/2015 None Full Exam - General 1994 Ears/Nose/Throat oral cavity/pharynx/larynx Overall: hypopharynx benign 10/02/2015 None Full Exam - General 1994 Ears/Nose/Throat oral cavity/pharynx/larynx Overall: no masses 10/02/2015 None Full Exam - General 1994 Respiratory auscultation Overall: breath sounds clear bilaterally 10/02/2015 None Full Exam - General 1994 Respiratory respiratory effort/rhythm Overall: no retractions 10/02/2015 None Full Exam - General 1994 Respiratory respiratory effort/rhythm Overall: normal rate 10/02/2015 None Full Exam - General 1994 Cardiovascular extremities Overall: no clubbing 10/02/2015 None Full Exam - General 1994 Cardiovascular auscultation of heart Overall: regular rate 10/02/2015 None Full Exam - General 1994 Cardiovascular auscultation of heart Overall: normal heart sounds 10/02/2015 None Full Exam - General 1994 Abdomen abdominal exam Overall: no tenderness 10/02/2015 None Full Exam - General 1994 Abdomen abdominal exam Overall: normal bowel sounds 10/02/2015 None Full Exam - General 1994 Musculoskeletal spine, ribs and pelvis Overall: good posture 10/02/2015 None Full Exam - General 1994 Musculoskeletal head and neck Overall: head atraumatic 10/02/2015 None Full Exam - General 1994 Musculoskeletal head and neck Overall: cervical spine benign 10/02/2015 None Full Exam - General 1994 Neurologic deep tendon reflexes Overall: deep tendon reflexes intact 10/02/2015 None Full Exam - General 1994 Neurologic cranial nerves Overall: crainial nerves 2 - 12 grossly intact 10/02/2015 None Full Exam - General 1994 Psychiatric orientation/consciousness Overall: oriented to person, place and time 10/02/2015 None Full Exam - General 1994 Psychiatric mood and affect Overall: normal mood and affect 10/02/2015 None Full Exam - General 1994 Constitutional general appearance Development: well developed 08/09/2015 None Full Exam - General 1994 Constitutional general appearance Development: appears stated age 0108/09/2015 None Full Exam - General 1994 Constitutional general appearance Hygiene/Attention to Grooming: good hygiene 08/09/2015 None Full Exam - General 1994 Eyes conjunctiva /eyelids Overall: conjunctiva clear 08/09/2015 None Full Exam - General 1994 Eyes conjunctiva /eyelids Overall: cornea clear 08/09/2015 None Full Exam - General 1994 Eyes conjunctiva /eyelids Overall: eyelids normal 08/09/2015 None Full Exam - General 1994 Eyes pupils and irises Overall: pupils equal, round, reactive to light and accomodation 08/09/2015 None Full Exam - General 1994 Ears/Nose/Throat otoscopic exam Overall: external auditory canals clear 08/09/2015 None Full Exam - General 1994 Ears/Nose/Throat otoscopic exam Overall: tympanic membranes clear 08/09/2015 None Full Exam - General 1994 Ears/Nose/Throat lips/teeth/gingiva Overall: benign lips 08/09/2015 None Full Exam - General 1994 Ears/Nose/Throat lips/teeth/gingiva Overall: normal dentition 08/09/2015 None Full Exam - General 1994 Ears/Nose/Throat oral cavity/pharynx/larynx Overall: oral mucosa clear 08/09/2015 None Full Exam - General 1994 Ears/Nose/Throat oral cavity/pharynx/larynx Overall: oropharyngeal mucosa clear 08/09/2015 None Full Exam - General 1994 Ears/Nose/Throat oral cavity/pharynx/larynx Overall: hypopharynx benign 08/09/2015 None Full Exam - General 1994 Ears/Nose/Throat oral cavity/pharynx/larynx Overall: no masses 08/09/2015 None Full Exam - General 1994 Respiratory auscultation Overall: breath sounds clear bilaterally 08/09/2015 None Full Exam - General 1994 Respiratory respiratory effort/rhythm Overall: no retractions 08/09/2015 None Full Exam - General 1994 Respiratory respiratory effort/rhythm Overall: normal rate 08/09/2015 None Full Exam - General 1994 Cardiovascular extremities Overall: no clubbing 08/09/2015 None Full Exam - General 1994 Cardiovascular auscultation of heart Overall: regular rate 08/09/2015 None Full Exam - General 1994 Cardiovascular auscultation of heart Overall: normal heart sounds 08/09/2015 None Full Exam - General 1994 Abdomen abdominal exam Overall: no tenderness 08/09/2015 None Full Exam - General 1994 Abdomen abdominal exam Overall: normal bowel sounds 08/09/2015 None Full Exam - General 1994 Musculoskeletal head and neck Overall: head atraumatic 08/09/2015 None Full Exam - General 1994 Musculoskeletal head and neck Overall: cervical spine benign 08/09/2015 None Full Exam - General 1994 Neurologic deep tendon reflexes Overall: deep tendon reflexes intact 08/09/2015 None Full Exam - General 1994 Neurologic cranial nerves Overall: crainial nerves 2 - 12 grossly intact 08/09/2015 None Full Exam - General 1994 Psychiatric orientation/consciousness Overall: oriented to person, place and time 08/09/2015 None Full Exam - General 1994 Psychiatric mood and affect Overall: normal mood and affect 08/09/2015 None Full Exam - General 1994 Musculoskeletal spine, ribs and pelvis Overall: good posture 08/09/2015 None Full Exam - General 1994 Constitutional general appearance Development: well developed 03/14/2015 None Full Exam - General 1994 Constitutional general appearance Development: appears stated age 0803/14/2015 None Full Exam - General 1994 Constitutional general appearance Hygiene/Attention to Grooming: good hygiene 03/14/2015 None Full Exam - General 1994 Eyes conjunctiva /eyelids Overall: conjunctiva clear 03/14/2015 None Full Exam - General 1994 Eyes conjunctiva /eyelids Overall: cornea clear 03/14/2015 None Full Exam - General 1994 Eyes conjunctiva /eyelids Overall: eyelids normal 03/14/2015 None Full Exam - General 1994 Eyes pupils and irises Overall: pupils equal, round, reactive to light and accomodation 03/14/2015 None Full Exam - General 1994 Ears/Nose/Throat otoscopic exam Overall: external auditory canals clear 03/14/2015 None Full Exam - General 1994 Ears/Nose/Throat otoscopic exam Overall: tympanic membranes clear 03/14/2015 None Full Exam - General 1994 Ears/Nose/Throat lips/teeth/gingiva Overall: benign lips 03/14/2015 None Full Exam - General 1994 Ears/Nose/Throat lips/teeth/gingiva Overall: normal dentition 03/14/2015 None Full Exam - General 1994 Ears/Nose/Throat oral cavity/pharynx/larynx Overall: oral mucosa clear 03/14/2015 None Full Exam - General 1994 Ears/Nose/Throat oral cavity/pharynx/larynx Overall: oropharyngeal mucosa clear 03/14/2015 None Full Exam - General 1994 Ears/Nose/Throat oral cavity/pharynx/larynx Overall: hypopharynx benign 03/14/2015 None Full Exam - General 1994 Ears/Nose/Throat oral cavity/pharynx/larynx Overall: no masses 03/14/2015 None Full Exam - General 1994 Respiratory auscultation Overall: breath sounds clear bilaterally 03/14/2015 None Full Exam - General 1994 Respiratory respiratory effort/rhythm Overall: no retractions 03/14/2015 None Full Exam - General 1994 Respiratory respiratory effort/rhythm Overall: normal rate 03/14/2015 None Full Exam - General 1994 Cardiovascular extremities Overall: no clubbing 03/14/2015 None Full Exam - General 1994 Cardiovascular auscultation of heart Overall: regular rate 03/14/2015 None Full Exam - General 1994 Cardiovascular auscultation of heart Overall: normal heart sounds 03/14/2015 None Full Exam - General 1994 Abdomen abdominal exam Overall: no tenderness 03/14/2015 None Full Exam - General 1994 Abdomen abdominal exam Overall: normal bowel sounds 03/14/2015 None Full Exam - General 1994 Lymphatic neck nodes Overall: anterior cervical chain benign 03/14/2015 None Full Exam - General 1994 Lymphatic neck nodes Overall: posterior cervical chain benign 03/14/2015 None Full Exam - General 1994 Musculoskeletal spine, ribs and pelvis Overall: spine benign 03/14/2015 None Full Exam - General 1994 Musculoskeletal spine, ribs and pelvis Overall: sacroiliac joint benign 03/14/2015 None Full Exam - General 1994 Musculoskeletal spine, ribs and pelvis Overall: good posture 03/14/2015 None Full Exam - General 1994 Musculoskeletal gait and station Overall: normal gait 03/14/2015 None Full Exam - General 1994 Musculoskeletal gait and station Overall: normal station 03/14/2015 None Full Exam - General 1994 Musculoskeletal head and neck Overall: head atraumatic 03/14/2015 None Full Exam - General 1994 Musculoskeletal head and neck Overall: cervical spine benign 03/14/2015 None Full Exam - General 1994 Integument inspection of skin Dermatitis: pustule 03/14/2015 None Full Exam - General 1994 Integument inspection of skin Dermatitis: petechiae 03/14/2015 None Full Exam - General 1994 Integument inspection of skin Dermatitis: erythema 03/14/2015 None Full Exam - General 1994 Integument inspection of skin Location: face 03/14/2015 on cheeks bilaterally - across nasal bridge to cheeks bilaterally Full Exam - General 1994 Neurologic deep tendon reflexes Overall: deep tendon reflexes intact 03/14/2015 None Full Exam - General 1994 Neurologic cranial nerves Overall: crainial nerves 2 - 12 grossly intact 03/14/2015 None Full Exam - General 1994 Psychiatric orientation/consciousness Overall: oriented to person, place and time 03/14/2015 None Full Exam - General 1994 Psychiatric mood and affect Overall: normal mood and affect 03/14/2015 None Full Exam - General 1994 Constitutional general appearance Development: well developed 12/26/2014 None Full Exam - General 1994 Constitutional general appearance Development: appears stated age 0512/26/2014 None Full Exam - General 1994 Constitutional general appearance Hygiene/Attention to Grooming: good hygiene 12/26/2014 None Full Exam - General 1994 Eyes conjunctiva /eyelids Overall: conjunctiva clear 12/26/2014 None Full Exam - General 1994 Eyes pupils and irises Overall: pupils equal, round, reactive to light and accomodation 12/26/2014 None Full Exam - General 1994 Ears/Nose/Throat otoscopic exam Overall: external auditory canals clear 12/26/2014 None Full Exam - General 1994 Ears/Nose/Throat otoscopic exam Overall: tympanic membranes clear 12/26/2014 None Full Exam - General 1994 Ears/Nose/Throat lips/teeth/gingiva Overall: benign lips 12/26/2014 None Full Exam - General 1994 Ears/Nose/Throat lips/teeth/gingiva Overall: normal dentition 12/26/2014 None Full Exam - General 1994 Ears/Nose/Throat oral cavity/pharynx/larynx Overall: oral mucosa clear 12/26/2014 None Full Exam - General 1994 Ears/Nose/Throat oral cavity/pharynx/larynx Overall: oropharyngeal mucosa clear 12/26/2014 None Full Exam - General 1994 Ears/Nose/Throat oral cavity/pharynx/larynx Overall: hypopharynx benign 12/26/2014 None Full Exam - General 1994 Respiratory auscultation Overall: breath sounds clear bilaterally 12/26/2014 None Full Exam - General 1994 Respiratory respiratory effort/rhythm Overall: no retractions 12/26/2014 None Full Exam - General 1994 Respiratory respiratory effort/rhythm Overall: normal rate 12/26/2014 None Full Exam - General 1994 Cardiovascular auscultation of heart Overall: regular rate 12/26/2014 None Full Exam - General 1994 Cardiovascular auscultation of heart Overall: normal heart sounds 12/26/2014 None Full Exam - General 1994 Psychiatric orientation/consciousness Overall: oriented to person, place and time 12/26/2014 None Full Exam - General 1994 Psychiatric mood and affect Overall: normal mood and affect 12/26/2014 None Full Exam - General 1994 Musculoskeletal spine, ribs and pelvis Sacroiliac joints: tender left sacroiliac joint 12/26/2014 None Full Exam - General 1994 Musculoskeletal spine, ribs and pelvis Sacroiliac joints: tender right sacroiliac joint 12/26/2014 None Full Exam - General 1994 Constitutional general appearance Development: well developed 11/06/2014 None Full Exam - General 1994 Constitutional general appearance Development: appears stated age 0411/06/2014 None Full Exam - General 1994 Constitutional general appearance Hygiene/Attention to Grooming: good hygiene 11/06/2014 None Full Exam - General 1994 Eyes conjunctiva /eyelids Overall: conjunctiva clear 11/06/2014 None Full Exam - General 1994 Eyes conjunctiva /eyelids Overall: cornea clear 11/06/2014 None Full Exam - General 1994 Eyes conjunctiva /eyelids Overall: eyelids normal 11/06/2014 None Full Exam - General 1994 Eyes pupils and irises Overall: pupils equal, round, reactive to light and accomodation 11/06/2014 None Full Exam - General 1994 Ears/Nose/Throat otoscopic exam Overall: external auditory canals clear 11/06/2014 None Full Exam - General 1994 Ears/Nose/Throat otoscopic exam Overall: tympanic membranes clear 11/06/2014 None Full Exam - General 1994 Ears/Nose/Throat lips/teeth/gingiva Overall: benign lips 11/06/2014 None Full Exam - General 1994 Ears/Nose/Throat lips/teeth/gingiva Overall: normal dentition 11/06/2014 None Full Exam - General 1994 Ears/Nose/Throat oral cavity/pharynx/larynx Overall: oral mucosa clear 11/06/2014 None Full Exam - General 1994 Ears/Nose/Throat oral cavity/pharynx/larynx Overall: oropharyngeal mucosa clear 11/06/2014 None Full Exam - General 1994 Ears/Nose/Throat oral cavity/pharynx/larynx Overall: hypopharynx benign 11/06/2014 None Full Exam - General 1994 Ears/Nose/Throat oral cavity/pharynx/larynx Overall: no masses 11/06/2014 None Full Exam - General 1994 Respiratory auscultation Overall: breath sounds clear bilaterally 11/06/2014 None Full Exam - General 1994 Respiratory respiratory effort/rhythm Overall: no retractions 11/06/2014 None Full Exam - General 1994 Respiratory respiratory effort/rhythm Overall: normal rate 11/06/2014 None Full Exam - General 1994 Cardiovascular extremities Overall: no clubbing 11/06/2014 None Full Exam - General 1994 Cardiovascular auscultation of heart Overall: regular rate 11/06/2014 None Full Exam - General 1994 Cardiovascular auscultation of heart Overall: normal heart sounds 11/06/2014 None Full Exam - General 1994 Abdomen abdominal exam Overall: no tenderness 11/06/2014 None Full Exam - General 1994 Abdomen abdominal exam Overall: normal bowel sounds 11/06/2014 None Full Exam - General 1994 Lymphatic neck nodes Overall: anterior cervical chain benign 11/06/2014 None Full Exam - General 1994 Lymphatic neck nodes Overall: posterior cervical chain benign 11/06/2014 None Full Exam - General 1994 Musculoskeletal spine, ribs and pelvis Overall: spine benign 11/06/2014 None Full Exam - General 1994 Musculoskeletal spine, ribs and pelvis Overall: sacroiliac joint benign 11/06/2014 None Full Exam - General 1994 Musculoskeletal spine, ribs and pelvis Overall: good posture 11/06/2014 None Full Exam - General 1994 Musculoskeletal gait and station Overall: normal gait 11/06/2014 None Full Exam - General 1994 Musculoskeletal gait and station Overall: normal station 11/06/2014 None Full Exam - General 1994 Musculoskeletal head and neck Overall: head atraumatic 11/06/2014 None Full Exam - General 1994 Musculoskeletal head and neck Overall: cervical spine benign 11/06/2014 None Full Exam - General 1994 Integument inspection of skin Dermatitis: pustule 11/06/2014 None Full Exam - General 1994 Integument inspection of skin Dermatitis: petechiae 11/06/2014 None Full Exam - General 1994 Integument inspection of skin Dermatitis: erythema 11/06/2014 None Full Exam - General 1994 Integument inspection of skin Location: face 11/06/2014 on cheeks bilaterally - across nasal bridge to cheeks bilaterally Full Exam - General 1994 Neurologic deep tendon reflexes Overall: deep tendon reflexes intact 11/06/2014 None Full Exam - General 1994 Neurologic cranial nerves Overall: crainial nerves 2 - 12 grossly intact 11/06/2014 None Full Exam - General 1994 Psychiatric orientation/consciousness Overall: oriented to person, place and time 11/06/2014 None Full Exam - General 1994 Psychiatric mood and affect Overall: normal mood and affect 11/06/2014 None Full Exam - General 1994 Constitutional general appearance Development: appears stated age 0310/23/2014 None Full Exam - General 1994 Constitutional general appearance Development: well developed 10/23/2014 None Full Exam - General 1994 Constitutional general appearance Hygiene/Attention to Grooming: good hygiene 10/23/2014 None Full Exam - General 1994 Eyes conjunctiva /eyelids Overall: conjunctiva clear 10/23/2014 None Full Exam - General 1994 Eyes conjunctiva /eyelids Overall: cornea clear 10/23/2014 None Full Exam - General 1994 Eyes conjunctiva /eyelids Overall: eyelids normal 10/23/2014 None Full Exam - General 1994 Eyes pupils and irises Overall: pupils equal, round, reactive to light and accomodation 10/23/2014 None Full Exam - General 1994 Ears/Nose/Throat otoscopic exam Overall: external auditory canals clear 10/23/2014 None Full Exam - General 1994 Ears/Nose/Throat otoscopic exam Overall: tympanic membranes clear 10/23/2014 None Full Exam - General 1994 Ears/Nose/Throat lips/teeth/gingiva Overall: benign lips 10/23/2014 None Full Exam - General 1994 Ears/Nose/Throat lips/teeth/gingiva Overall: normal dentition 10/23/2014 None Full Exam - General 1994 Ears/Nose/Throat oral cavity/pharynx/larynx Overall: hypopharynx benign 10/23/2014 None Full Exam - General 1994 Ears/Nose/Throat oral cavity/pharynx/larynx Overall: no masses 10/23/2014 None Full Exam - General 1994 Ears/Nose/Throat oral cavity/pharynx/larynx Overall: oral mucosa clear 10/23/2014 None Full Exam - General 1994 Ears/Nose/Throat oral cavity/pharynx/larynx Overall: oropharyngeal mucosa clear 10/23/2014 None Full Exam - General 1994 Respiratory auscultation Overall: breath sounds clear bilaterally 10/23/2014 None Full Exam - General 1994 Respiratory respiratory effort/rhythm Overall: no retractions 10/23/2014 None Full Exam - General 1994 Respiratory respiratory effort/rhythm Overall: normal rate 10/23/2014 None Full Exam - General 1994 Cardiovascular extremities Overall: no clubbing 10/23/2014 None Full Exam - General 1994 Cardiovascular auscultation of heart Overall: normal heart sounds 10/23/2014 None Full Exam - General 1994 Cardiovascular auscultation of heart Overall: regular rate 10/23/2014 None Full Exam - General 1994 Abdomen abdominal exam Overall: no tenderness 10/23/2014 None Full Exam - General 1994 Abdomen abdominal exam Overall: normal bowel sounds 10/23/2014 None Full Exam - General 1994 Neurologic deep tendon reflexes Overall: deep tendon reflexes intact 10/23/2014 None Full Exam - General 1994 Neurologic cranial nerves Overall: crainial nerves 2 - 12 grossly intact 10/23/2014 None Full Exam - General 1994 Psychiatric orientation/consciousness Overall: oriented to person, place and time 10/23/2014 None Full Exam - General 1994 Psychiatric mood and affect Overall: normal mood and affect 10/23/2014 None Full Exam - General 1994 Integument inspection of skin Dermatitis: pustule 10/23/2014 None Full Exam - General 1994 Integument inspection of skin Dermatitis: petechiae 10/23/2014 None Full Exam - General 1994 Integument inspection of skin Dermatitis: erythema 10/23/2014 None Full Exam - General 1994 Integument inspection of skin Location: face 10/23/2014 on cheeks bilaterally - across nasal bridge to cheeks bilaterally Full Exam - General 1994 Musculoskeletal head and neck Overall: cervical spine benign 10/23/2014 None Full Exam - General 1994 Musculoskeletal head and neck Overall: head atraumatic 10/23/2014 None Full Exam - General 1994 Musculoskeletal gait and station Overall: normal station 10/23/2014 None Full Exam - General 1994 Musculoskeletal gait and station Overall: normal gait 10/23/2014 None Full Exam - General 1994 Musculoskeletal spine, ribs and pelvis Overall: good posture 10/23/2014 None Full Exam - General 1994 Musculoskeletal spine, ribs and pelvis Overall: sacroiliac joint benign 10/23/2014 None Full Exam - General 1994 Musculoskeletal spine, ribs and pelvis Overall: spine benign 10/23/2014 None Full Exam - General 1994 Lymphatic neck nodes Overall: anterior cervical chain benign 10/23/2014 None Full Exam - General 1994 Lymphatic neck nodes Overall: posterior cervical chain benign 10/23/2014 None Procedures Procedure Codes Date ADMIN INFLUENZA VIRUS VAC CPT-4: G0008 05/18/2017 FLU VAC NO PRSV 4 KOREY 3 YRS+ CPT-4: 06294 05/18/2017 PPPS, SUBSEQ VISIT CPT -4: G0439 10/17/2016 ADMIN PNEUMOCOCCAL VACCINE SNOMED CT: 19080588 CPT-4: G0009 05/05/2016 PNEUMOCOCCAL VACC [address]: 59261497 CPT-4: 48122 05/05/2016 ADMIN INFLUENZA VIRUS VAC CPT-4: G0008 04/21/2016 FLU VACC PRSV FREE INC ANTIG CPT-4: 46058 04/21/2016 Vital Signs Date Vital 08/20/2017 Blood Pressure 1: 130/70 Code : 8480-6 Blood Pressure 1: 146/76 Code: 8480-6 BMI: 33.7 Code: 24037-0 Heart Rate 1: 65 bpm Height: 5'3" SpO2: 97% Weight: 190 lbs 05/18/2017 Blood Pressure 1: 132/76 Code : 8480-6 BMI: 34.4 Code : 78039-4 Heart Rate 1 : 77 bpm Height: 5'3" SpO2: 94% Weight: 194 lbs 02/04/2017 Blood Pressure 1: 142/76 Code : 8480-6 BMI: 34.0 Code : 40401-0 Heart Rate 1 : 66 bpm Height: 5'3" SpO2: 95% Weight: 192 lbs 12/12/2016 Blood Pressure 1: 138/70 Code : 8480-6 BMI: 34.0 Code : 95494-2 Height: 5'3" Weight: 192 lbs 11/10/2016 Blood Pressure 1: 138/70 Code : 8480-6 BMI: 33.3 Code : 46498-7 Heart Rate 1 : 62 bpm Height: 5'3" SpO2: 98% Weight: 188 lbs 10/17/2016 Blood Pressure 1: 136/88 Code : 8480-6 BMI: 33.7 Code : 67648-4 Heart Rate 1 : 63 bpm Height: 5'3" SpO2: 97% Waist Measure (cm): 84 cm Weight: 190 lbs 10/13/2016 Blood Pressure 1: 144/78 Code : 8480-6 BMI: 33.1 Code : 70265-0 Heart Rate 1 : 59 bpm Height: 5'3" SpO2: 97% Weight: 187 lbs 05/05/2016 Blood Pressure 1: 136/70 Code : 8480-6 BMI: 32.9 Code : 19555-9 Heart Rate 1 : 62 bpm Height: 5'3" SpO2: 98% Weight: 186 lbs 04/21/2016 Blood Pressure 1: 128/72 Code : 8480-6 BMI: 32.4 Code : 97522-9 Heart Rate 1 : 86 bpm Height: 5'3" SpO2: 98% Weight: 183 lbs 10/02/2015 Blood Pressure 1: 139/78 Code : 8480-6 BMI: 32.8 Code : 17661-2 Heart Rate 1 : 81 bpm Height: 5'3" SpO2: 93% Weight: 185 lbs 08/09/2015 Blood Pressure 1: 124/70 Code : 8480-6 BMI: 32.4 Code : 15922-6 Heart Rate 1 : 72 bpm Height: 5'3" SpO2: 96% Weight: 183 lbs 03/14/2015 Blood Pressure 1: 122/80 Code : 8480-6 BMI: 31.4 Code : 12792-2 Heart Rate 1 : 72 bpm Height: 5'3" SpO2: 98% Weight: 177 lbs 12/26/2014 Blood Pressure 1: 130/80 Code : 8480-6 BMI: 31.9 Code : 77364-9 Heart Rate 1 : 78 bpm Height: 5'3" SpO2: 96% Weight: 180 lbs 11/06/2014 Blood Pressure 1: 118/74 Code : 8480-6 BMI: 31.9 Code : 16633-4 Heart Rate 1 : 60 bpm Height: 5'3" SpO2: 98% Weight: 180 lbs 10/23/2014 Blood Pressure 1: 144/96 Code : 8480-6 Blood Pressure 2: 140/88 Code: 8480-6 BMI: 31.7 Code: 27206-1 Heart Rate 1: 72 bpm Height: 5'3" Weight: 179 lbs Functional Status No Functional Status data History of Present Illness Symptom Name Status Result Effective Date Notes dyspnea Onset and Resolution ongoing 08/20/2017 None dyspnea Alleviating Factors rest 08/20/2017 None dyspnea Exacerbating Factors exertion 08/20/2017 None dyspnea Pertinent Findings Denies chest discomfort 08/20/2017 None dyspnea Pertinent Findings cough 08/20/2017 --improving dyspnea Pertinent Findings Denies lightheadedness 08/20/2017 None weight gain/obesity Location globally 08/20/2017 None weight gain/obesity Quality chronic 08/20/2017 None weight gain/obesity Onset and Resolution gradual in onset 08/20/2017 None weight gain/obesity Onset and Resolution ongoing 08/20/2017 None weight gain/obesity Frequency of Episodes unchanged 08/20/2017 None weight gain/obesity Diet is unchanged 08/20/2017 she states that she eats a granola bar for breakfast, eats a sandwich or a hamburger for lunch, and cereal for a snack, and granola and yogurt for supper. weight gain/obesity Pertinent Findings dyspnea 08/20/2017 None gas and bloating Onset and Resolution ongoing 08/20/2017 None gas and bloating Pertinent Findings Denies abdominal distension 08/20/2017 None gas and bloating Pertinent Findings Denies dyspepsia 08/20/2017 None gas and bloating Pertinent Findings Denies dyspnea 08/20/2017 None gas and bloating Pertinent Findings Denies early satiety 08/20/2017 None gas and bloating Pertinent Findings Denies edema 08/20/2017 None gas and bloating Pertinent Findings Denies flatulence 08/20/2017 None gas and bloating Pertinent Findings Denies heartburn 08/20/2017 None gas and bloating Pertinent Findings Denies lightheadedness 08/20/2017 None dyspnea Quality improving 08/20/2017 None gas and bloating Quality improving 08/20/2017 None dyspnea Quality intermittent 05/18/2017 None dyspnea Quality shortness of breath 05/18/2017 None dyspnea Onset and Resolution ongoing 05/18/2017 None dyspnea Alleviating Factors rest 05/18/2017 None dyspnea Exacerbating Factors exertion 05/18/2017 None dyspnea Pertinent Findings Denies chest discomfort 05/18/2017 None dyspnea Pertinent Findings cough 05/18/2017 --improving dyspnea Pertinent Findings Denies lightheadedness 05/18/2017 None weight gain/obesity Onset and Resolution gradual in onset 05/18/2017 None weight gain/obesity Onset and Resolution ongoing 05/18/2017 None weight gain/obesity Frequency of Episodes unchanged 05/18/2017 None weight gain/obesity Pertinent Findings dyspnea 05/18/2017 None gas and bloating Quality worsening 05/18/2017 None gas and bloating Onset and Resolution ongoing 05/18/2017 None gas and bloating Pertinent Findings abdominal distension 05/18/2017 None gas and bloating Pertinent Findings Denies dyspepsia 05/18/2017 None gas and bloating Pertinent Findings dyspnea 05/18/2017 None gas and bloating Pertinent Findings early satiety 05/18/2017 None gas and bloating Pertinent Findings edema 05/18/2017 None gas and bloating Pertinent Findings Denies flatulence 05/18/2017 None gas and bloating Pertinent Findings Denies heartburn 05/18/2017 None gas and bloating Pertinent Findings Denies lightheadedness 05/18/2017 None weight gain/obesity Location globally 05/18/2017 None weight gain/obesity Quality chronic 05/18/2017 None weight gain/obesity Diet is unchanged 05/18/2017 she states that she eats a granola bar for breakfast, eats a sandwich or a hamburger for lunch, and cereal for a snack, and granola and yogurt for supper. vaccination against influenza Location [id number] 05/18/2017 None dyspnea Quality intermittent 02/04/2017 None dyspnea Quality shortness of breath 02/04/2017 None dyspnea Onset and Resolution ongoing 02/04/2017 None dyspnea Alleviating Factors rest 02/04/2017 None dyspnea Exacerbating Factors exertion 02/04/2017 None dyspnea Pertinent Findings cough 02/04/2017 --improving weight gain/obesity Onset and Resolution gradual in onset 02/04/2017 None weight gain/obesity Onset and Resolution ongoing 02/04/2017 None weight gain/obesity Frequency of Episodes unchanged 02/04/2017 None weight gain/obesity Pertinent Findings dyspnea 02/04/2017 None dyspnea Pertinent Findings Denies chest discomfort 02/04/2017 None dyspnea Pertinent Findings Denies lightheadedness 02/04/2017 None gas and bloating Quality worsening 02/04/2017 None gas and bloating Onset and Resolution ongoing 02/04/2017 None gas and bloating Pertinent Findings abdominal distension 02/04/2017 None gas and bloating Pertinent Findings dyspnea 02/04/2017 None gas and bloating Pertinent Findings edema 02/04/2017 None gas and bloating Pertinent Findings early satiety 02/04/2017 None gas and bloating Pertinent Findings Denies dyspepsia 02/04/2017 None gas and bloating Pertinent Findings Denies flatulence 02/04/2017 None gas and bloating Pertinent Findings Denies heartburn 02/04/2017 None gas and bloating Pertinent Findings Denies lightheadedness 02/04/2017 None vaginal bleeding Quality acute 12/12/2016 None vaginal bleeding Quality red 12/12/2016 None vaginal bleeding Onset and Resolution sudden in onset 12/12/2016 None vaginal bleeding Onset of Symptom 1 weeks ago 12/12/2016 None vaginal bleeding Pertinent Findings pelvic pain 12/12/2016 None vaginal bleeding Severity mild 12/12/2016 None vaginal bleeding Limitation on Activities does not limit activities 12/12/2016 None vaginal bleeding Frequency of Episodes increasing 12/12/2016 None vaginal bleeding Triggers no known associated factors 12/12/2016 None abdominal pain Location diffusely 12/12/2016 None abdominal pain Quality acute 12/12/2016 None abdominal pain Onset and Resolution ongoing 12/12/2016 None abdominal pain Onset of Symptom 2 weeks ago 12/12/2016 None abdominal pain Limitation on Activities does not limit activities 12/12/2016 None abdominal pain Frequency of Episodes increasing 12/12/2016 None abdominal pain Triggers no known associated factors 12/12/2016 None dyspnea Quality intermittent 11/10/2016 None dyspnea Quality shortness of breath 11/10/2016 None dyspnea Onset and Resolution ongoing 11/10/2016 None dyspnea Alleviating Factors rest 11/10/2016 None dyspnea Exacerbating Factors exertion 11/10/2016 None dyspnea Pertinent Findings cough 11/10/2016 --improving weight gain/obesity Onset and Resolution gradual in onset 11/10/2016 None weight gain/obesity Onset and Resolution ongoing 11/10/2016 None weight gain/obesity Frequency of Episodes unchanged 11/10/2016 None weight gain/obesity Pertinent Findings dyspnea 11/10/2016 None hypertension Quality intermittent 11/10/2016 None hypertension Onset and Resolution ongoing 11/10/2016 None hypertension Onset of Symptom during adulthood 11/10/2016 None hypertension Blood Pressure Values not checking blood pressure at home 11/10/2016 None hypertension Alleviating Factors medication 11/10/2016 None hypertension Pertinent Findings Denies dizziness 11/10/2016 None hypertension Pertinent Findings dyspnea 11/10/2016 None hypertension Pertinent Findings edema 11/10/2016 in her left leg occasionally low back pain Location on both sides 11/10/2016 None low back pain Radiating the left groin 11/10/2016 (worse) low back pain Quality acute 11/10/2016 None low back pain Quality intermittent 11/10/2016 None low back pain Onset and Resolution ongoing 11/10/2016 None low back pain Limitation on Activities allows weight bearing activity 11/10/2016 None low back pain Exacerbating Factors lifting 11/10/2016 None low back pain Exacerbating Factors motion 11/10/2016 None low back pain Radiating the right groin 11/10/2016 None low back pain Onset of Symptom 3 months ago 11/10/2016 None Annual Medicare Wellness Exam Alcohol Use does not drink any alcohol 10/17/2016 None Annual Medicare Wellness Exam Aspirin Use no 10/17/2016 None Annual Medicare Wellness Exam Blood Glucose (self reported) don't know 10/17/2016 None Annual Medicare Wellness Exam Blood Pressure (self reported ) borderline (120/80 - 139/89) 10/17/2016 None Annual Medicare Wellness Exam Cholesterol (self reported) desireable (below 200) 10/17/2016 None Annual Medicare Wellness Exam Depression (last 6 months) some of the time 10/17/2016 None Annual Medicare Wellness Exam Depression or Hopelessness almost never 10/17/2016 None Annual Medicare Wellness Exam Describe Your Health very good 10/17/2016 None Annual Medicare Wellness Exam Exercise Habits exercises 2 days per week 10/17/2016 None Annual Medicare Wellness Exam Exercise Habits exercises 30 minutes per day 10/17/2016 None Annual Medicare Wellness Exam Handling Stress usually marifer effectively 10/17/2016 None Annual Medicare Wellness Exam Hemaglobin A-1C (self reported ) don't know 10/17/2016 None Annual Medicare Wellness Exam Hours of Sleep 8 10/17/2016 None Annual Medicare Wellness Exam Interaction with Friends yes 10/17/2016 None Annual Medicare Wellness Exam Interests & Pleasure most of the time 10/17/2016 None Annual Medicare Wellness Exam Life Satisfaction satisfied 10/17/2016 None Annual Medicare Wellness Exam Motor Vehicle Safety always fastens seat belt: y 10/17/2016 None Annual Medicare Wellness Exam Motor Vehicle Safety drives after drinking: n 10/17/2016 None Annual Medicare Wellness Exam Motor Vehicle Safety rides with someone who has been drinking: n 2016 None Annual Medicare Wellness Exam Nutrition servings of fried food / high fat foods per day: 0 2016 None Annual Medicare Wellness Exam Nutrition servings of high fiber / whole grain per day: 2 10/17/2016 None Annual Medicare Wellness Exam Nutrition servings of vegetables / fruit per day: 1 10/17/2016 None Annual Medicare Wellness Exam Smoking and Tobacco Use non smoker 10/17/2016 None Annual Medicare Wellness Exam Social & Emotional Support always 10/17/2016 None Annual Medicare Wellness Exam Stress almost never 10/17/2016 None Annual Medicare Wellness Exam Sun Exposure protects skin when outdoors: y 10/17/2016 None diarrhea Quality chronic 10/13/2016 Pt states that she has been on lotronex - it did not help - she has had colonoscopies and EGD's without improvement in symptoms. She had her gallbladder evaluated - no abnormalities. diarrhea Onset and Resolution ongoing 10/13/2016 None diarrhea Onset of Symptom years ago 10/13/2016 since 1988 diarrhea Timing of Episodes after meals 10/13/2016 (mainly lunch) dyspnea Quality intermittent 10/13/2016 None dyspnea Quality shortness of breath 10/13/2016 None dyspnea Onset and Resolution ongoing 10/13/2016 None dyspnea Alleviating Factors rest 10/13/2016 None dyspnea Pertinent Findings cough 10/13/2016 None weight gain/obesity Onset and Resolution gradual in onset 10/13/2016 None weight gain/obesity Onset and Resolution ongoing 10/13/2016 None weight gain/obesity Frequency of Episodes unchanged 10/13/2016 None weight gain/obesity Pertinent Findings dyspnea 10/13/2016 None hypertension Onset and Resolution ongoing 10/13/2016 None hypertension Onset of Symptom during adulthood 10/13/2016 None hypertension Blood Pressure Values not checking blood pressure at home 10/13/2016 None hypertension Alleviating Factors medication 10/13/2016 None hypertension Pertinent Findings Denies dizziness 10/13/2016 None hypertension Pertinent Findings dyspnea 10/13/2016 None hypertension Pertinent Findings edema 10/13/2016 in her left leg occasionally low back pain Location on both sides 10/13/2016 None low back pain Radiating the left groin 10/13/2016 None low back pain Quality intermittent 10/13/2016 None low back pain Quality acute 10/13/2016 None low back pain Onset and Resolution ongoing 10/13/2016 None low back pain Onset of Symptom 2 months ago 10/13/2016 None low back pain Limitation on Activities allows weight bearing activity 10/13/2016 None low back pain Mechanism of injury unknown 10/13/2016 None low back pain Exacerbating Factors lifting 10/13/2016 None low back pain Exacerbating Factors motion 10/13/2016 None dyspnea Exacerbating Factors exertion 10/13/2016 None hypertension Quality intermittent 10/13/2016 None diarrhea Quality chronic 05/05/2016 Pt states that she has been on lotronex - it did not help - she has had colonoscopies and EGD's without improvement in symptoms. She had her gallbladder evaluated - no abnormalities. diarrhea Onset and Resolution ongoing 05/05/2016 None diarrhea Onset of Symptom years ago 05/05/2016 since 1988 diarrhea Timing of Episodes after meals 05/05/2016 (mainly lunch) cough Quality dry 10/2015 None cough Quality intermittent 05/05/2016 None cough Onset and Resolution ongoing 05/05/2016 None cough Pertinent Findings dyspnea 05/05/2016 None dyspnea Quality intermittent 05/05/2016 None dyspnea Quality shortness of breath 05/05/2016 None dyspnea Onset and Resolution ongoing 05/05/2016 None dyspnea Alleviating Factors rest 05/05/2016 None dyspnea Pertinent Findings cough 05/05/2016 (improved) weight gain/obesity Onset and Resolution gradual in onset 05/05/2016 None weight gain/obesity Onset and Resolution ongoing 05/05/2016 None weight gain/obesity Frequency of Episodes unchanged 05/05/2016 None weight gain/obesity Pertinent Findings dyspnea 05/05/2016 None hoarseness Quality intermittent 05/05/2016 None hoarseness Quality reduced ability to maintain tone 05/05/2016 None hoarseness Quality reduced volume 05/05/2016 None hoarseness Quality breathy voice 05/05/2016 None hoarseness Onset and Resolution ongoing 05/05/2016 None hoarseness Limitation on Activities moderately limits communication 05/05/2016 None hoarseness Triggers no known associated factors 05/05/2016 None hoarseness Pertinent Findings cough 05/05/2016 None cough Quality improving 05/05/2016 None dyspnea Frequency of Episodes unchanged 05/05/2016 None hoarseness Quality improving 05/05/2016 None hoarseness Frequency of Episodes decreasing 05/05/2016 None diarrhea Quality chronic 04/21/2016 Pt states that she has been on lotronex - it did not help - she has had colonoscopies and EGD's without improvement in symptoms. She had her gallbladder evaluated - no abnormalities. diarrhea Onset and Resolution ongoing 04/21/2016 None diarrhea Onset of Symptom years ago 04/21/2016 since 1988 cough Quality intermittent 04/21/2016 None cough Onset and Resolution ongoing 04/21/2016 None dyspnea Quality shortness of breath 04/21/2016 None dyspnea Onset and Resolution ongoing 04/21/2016 None dyspnea Alleviating Factors rest 04/21/2016 None dyspnea Pertinent Findings cough 04/21/2016 None weight gain/obesity Pertinent Findings dyspnea 04/21/2016 None diarrhea Timing of Episodes after meals 04/21/2016 None cough Quality dry None cough Pertinent Findings dyspnea 04/21/2016 None dyspnea Quality intermittent 04/21/2016 None weight gain/obesity Onset and Resolution gradual in onset 04/21/2016 None weight gain/obesity Onset and Resolution ongoing 04/21/2016 None weight gain/obesity Frequency of Episodes unchanged 04/21/2016 None hoarseness Quality intermittent 04/21/2016 None hoarseness Quality reduced ability to maintain tone 04/21/2016 None hoarseness Quality breathy voice 04/21/2016 None hoarseness Quality reduced volume 04/21/2016 None hoarseness Onset and Resolution ongoing 04/21/2016 None hoarseness Frequency of Episodes daily 04/21/2016 None hoarseness Limitation on Activities moderately limits communication 04/21/2016 None hoarseness Triggers no known associated factors 04/21/2016 None hoarseness Pertinent Findings cough 04/21/2016 None headache Quality aching 04/21/2016 None headache Quality dull 04/21/2016 None headache Onset and Resolution sudden in onset 04/21/2016 None headache Onset of Symptom 1 weeks ago 04/21/2016 None diarrhea Quality chronic 10/02/2015 Pt states that she has been on lotronex - it did not help - she has had colonoscopies and EGD's without improvement in symptoms. She had her gallbladder evaluated - no abnormalities. diarrhea Onset and Resolution ongoing 10/02/2015 None diarrhea Onset of Symptom _ years ago 10/02/2015 since 1988 cough Quality acute None cough Quality intermittent 10/02/2015 None cough Quality dry 08/2015 None cough Onset and Resolution sudden in onset 10/02/2015 None cough Onset and Resolution ongoing 10/02/2015 None cough Onset of Symptom 1 months ago 10/02/2015 None cough Pertinent Findings Denies fever 10/02/2015 None cough Pertinent Findings Denies chills 10/02/2015 None cough Pertinent Findings Denies chest discomfort 10/02/2015 None cough Pertinent Findings Denies heartburn 10/02/2015 None dyspnea Quality acute 10/02/2015 None dyspnea Quality shortness of breath 10/02/2015 None dyspnea Onset and Resolution sudden in onset 10/02/2015 None dyspnea Onset and Resolution ongoing 10/02/2015 None dyspnea Onset of Symptom 1 months ago 10/02/2015 None dyspnea Alleviating Factors rest 10/02/2015 None dyspnea Pertinent Findings cough 10/02/2015 None weight gain/obesity Quality acute 10/02/2015 None weight gain/obesity Onset and Resolution sudden in onset 10/02/2015 None weight gain/obesity Onset of Symptom 1 months ago 10/02/2015 None weight gain/obesity Pertinent Findings Denies heartburn 10/02/2015 None weight gain/obesity Pertinent Findings dyspnea 10/02/2015 None weight gain/obesity Pertinent Findings Denies edema 10/02/2015 None weight gain/obesity Pertinent Findings Denies nausea 10/02/2015 None hypertension Onset and Resolution ongoing 08/09/2015 None hypertension Alleviating Factors medication 08/09/2015 None hypertension Blood Pressure Values not checking blood pressure at home 08/09/2015 None hypertension Pertinent Findings dizziness 08/09/2015 when she stands up too fast hypertension Pertinent Findings dyspnea 08/09/2015 None hypertension Pertinent Findings edema 08/09/2015 in her feet some hypertension Quality stable 08/09/2015 None diarrhea Quality chronic 08/09/2015 Pt states that she has been on lotronex - it did not help - she has had colonoscopies and EGD's without improvement in symptoms. She had her gallbladder evaluated - no abnormalities. diarrhea Onset and Resolution ongoing 08/09/2015 None diarrhea Onset of Symptom _ years ago 08/09/2015 since 1988 ~generic Location diffusely 03/14/2015 Feels hot all of the time ~generic Onset of Symptom 1 years ago 03/14/2015 - she started noticing problems about 1-2 years ago - hoarseness Quality intermittent 03/14/2015 comes and goes hoarseness Onset of Symptom 1+ years ago 03/14/2015 None insomnia Quality difficulty falling asleep 03/14/2015 None insomnia Onset of Symptom 1 years ago 03/14/2015 since back pain Location in the left lower back area 12/26/2014 None back pain Location in the right lower back area 12/26/2014 None back pain Onset of Symptom 1 months ago 12/26/2014 None back pain Frequency of Episodes decreasing 12/26/2014 first two weeks had trouble walking- had lots of pain- couldnt turn or bend down. back pain Mechanism of injury unknown 12/26/2014 None rash Quality intermittent 11/06/2014 None rash Onset and Resolution gradual in onset 11/06/2014 None rash Onset of Symptom 6 months ago 11/06/2014 fall rash Severity moderate 11/06/2014 None rash Triggers no known triggers 11/06/2014 None rash Pertinent Findings Denies fever 11/06/2014 None rash Pertinent Findings Denies itching 11/06/2014 None rash Pertinent Findings Denies pain 11/06/2014 None shortness of breath Quality acute 11/06/2014 None shortness of breath Onset and Resolution gradual in onset 11/06/2014 None shortness of breath Onset of Symptom _ weeks ago 11/06/2014 since it is warm she has been walking shortness of breath Pertinent Findings Denies chest discomfort 11/06/2014 None rash Location-Head/Neck on the left cheek 10/23/2014 None rash Onset of Symptom 6 months ago 10/23/2014 fall rash Pertinent Findings Denies fever 10/23/2014 None rash Pertinent Findings Denies pain 10/23/2014 None rash Pertinent Findings Denies itching 10/23/2014 None shortness of breath Onset of Symptom _ weeks ago 10/23/2014 since it is warm she has been walking shortness of breath Pertinent Findings Denies chest discomfort 10/23/2014 None shortness of breath Quality acute 10/23/2014 None shortness of breath Onset and Resolution gradual in onset 10/23/2014 None rash Color erythematous 10/23/2014 None rash Quality intermittent 10/23/2014 None rash Onset and Resolution gradual in onset 10/23/2014 None rash Severity moderate 10/23/2014 None rash Prior Treatments unresponsive to treatment 10/23/2014 None rash Triggers no known triggers 10/23/2014 None Advance Directives No Advance Directive data Encounters Encounter Performer Location Codes Date ([id number]) [id number] EST. PATIENT, LEVEL III Diagnosis: Essential (primary) hypertension[ICD10: I10] Diagnosis: Discoid lupus erythematosus[ICD10: L93.0] Sary Polo MD, [facility] CPT-4: 47002 08/20/2017 [id number]) 98211 EST. PATIENT, LEVEL IV Diagnosis: Essential (primary) hypertension[ICD10: I10] Diagnosis: Other forms of dyspnea[ICD10: R06.09] Diagnosis: Encounter for immunization[ICD10: Z23] Diagnosis: Mixed hyperlipidemia[ICD10: E78.2] Diagnosis: Morbid (severe) obesity due to excess calories[ICD10: E66.01] Sary Polo MD, [facility] CPT-4: 71786 05/18/2017 ([id number]) 34584 EST. PATIENT, LEVEL IV Diagnosis: Essential (primary) hypertension[ICD10: I10] Diagnosis: Other organ or system involvement in systemic lupus erythematosus[ ICD10: M32.19] Diagnosis: Low back pain[ICD10: M54.5] Diagnosis: Generalized abdominal pain[ICD10: R10.84] Diagnosis: Other forms of dyspnea[ICD10: R06.09] Sary Polo MD, [facility] CPT-4: 46936 02/04/2017 [id number]) 04480 EST. PATIENT, LEVEL IV Diagnosis: Abnormal uterine and vaginal bleeding, unspecified[ICD10: N93.9] Diagnosis: Generalized abdominal pain[ICD10: R10.84] Apryl Polo MD, [facility] CPT-4: 50402 12/12/2016 ([id number]) 72672 EST. PATIENT, LEVEL IV Diagnosis: Pain in left hip[ICD10: M25.552] Diagnosis: Low back pain[ICD10: M54.5] Diagnosis: Essential (primary) hypertension[ICD10: I10] Diagnosis: Mixed hyperlipidemia[ICD10: E78.2] [facility] CPT-4: 78516 11/10/2016 [id number]) 48845 EST. PATIENT, LEVEL IV Diagnosis: Essential (primary) hypertension[ICD10: I10] Diagnosis: Other organ or system involvement in systemic lupus erythematosus[ ICD10: M32.19] Sary Polo MD, [facility] CPT-4: 50789 10/13/2016 ([id number]) 75484 EST. PATIENT, LEVEL IV Diagnosis: Essential (primary) hypertension[ICD10: I10] Diagnosis: Encounter for immunization[ICD10: Z23] Diagnosis: Discoid lupus erythematosus[ICD10: L93.0] Sary Polo MD, [facility] CPT-4: 45361 05/05/2016 ([id number]) 74785 EST. PATIENT, LEVEL IV Diagnosis: Essential (primary) hypertension[ICD10: I10] Diagnosis: Other intestinal malabsorption[ICD10: K90.89] Diagnosis: Dysphonia[ICD10: R49.0] Diagnosis: Encounter for immunization[ICD10: Z23] Sary Polo MD, [facility] CPT-4: 58609 04/21/2016 ([id number]) 34078 EST. PATIENT, LEVEL IV Diagnosis: Essential (primary) hypertension[ICD10: I10] Diagnosis: Systemic lupus erythematosus, unspecified[ICD10: M32.9] Diagnosis: Other fecal abnormalities[ICD10: R19.5] Sary Polo MD, [facility] CPT-4: 07338 10/02/2015 ([id number]) 66819 EST. PATIENT, LEVEL IV Diagnosis: Essential (primary) hypertension[ICD10: I10] Diagnosis: Systemic lupus erythematosus, unspecified[ICD10: M32.9] Diagnosis: Intestinal malabsorption, unspecified[ICD10: K90.9] Sary Polo MD, [facility] CPT-4: 80583 08/09/2015 ([id number]) 72715 EST. PATIENT, LEVEL IV Diagnosis: ESSENTIAL HYPERTENSION[ICD9: 401.9] Diagnosis: Medication reaction[ICD9: 995.20] Sary Polo MD, [facility] CPT-4: 24002 03/14/2015 ([id number]) 82946 EST. PATIENT, LEVEL III Diagnosis: Low back pain[ICD9: 724.2] Diagnosis: Sacroiliitis[ICD9: 720.2] Apryl Polo MD, [facility] CPT-4: 51435 12/26/2014 ([id number]) 81097 EST. PATIENT, LEVEL IV Diagnosis: Malar rash[ICD9: 782.1] Diagnosis: ESOPHAGEAL REFLUX[ICD9: 530.81] Diagnosis: ESSENTIAL HYPERTENSION[ICD9: 401.9] [facility] CPT-4: 57940 11/06/2014 ([id number]) OFFICE VISIT, NEW - LEVEL 4 Diagnosis: ESSENTIAL HYPERTENSION[ICD9: 401.9] Diagnosis: ESOPHAGEAL REFLUX[ICD9: 530.81] Diagnosis: Rosacea[ICD9: 695.3] Diagnosis: Malar rash[ICD9: 782.1] [facility] CPT-4: 51674 10/23/2014 Plan of Care Planned Activity Notes Codes Status Date Visit Plan: Hypertension - well controlled - continue with current medications, continue with no added salt diet. Pt has been encouraged to exercise daily. The pt has been advised to call the office if there are any acute concerns about change in blood pressure readings at home. Lupus - continue with plaquenil 08/20/2017 Patient Education: Patient Medication Summary Completed 08/20/2017 Visit Plan: Hypertension - well controlled - continue with current medications, continue with no added salt diet. Pt has been encouraged to exercise daily. The pt has been advised to call the office if there are any acute concerns about change in blood pressure readings at home. Hyperlipidemia - pt has been counseled about appropriate diet, exercise, and need for low fat food choices. I have discussed the need for the patient to take medications as prescribed. If the patient has negative side effects from the medication, they are to CALL the office and not abruptly discontinue the medication without discussion with a practitioner in the office. We will check labs in 3-6 months for follow up on the patient's chronic medical problem and to assure normal liver response to medications. Weight gain - discussed with patient that she needs to decrease her carbohydrate intake, increase activity monitor symptoms. 05/18/2017 Appointment: Sary Polo WPtel: [address] [place], [place] [id number] (15 min) Moderate 05/18/2017 Patient Education: Patient Medication Summary Completed 05/18/2017 Patient Education: Obesity Completed 05/18/2017 Visit Plan: Hypertension - well controlled - continue with current medications, continue with no added salt diet. Pt has been encouraged to exercise daily. The pt has been advised to call the office if there are any acute concerns about change in blood pressure readings at home. Abdominal pain - I have recommended referral to [facility] for egd/colnoscopy - however she has refused the recommendation - she wants to wait for the next three months to see if her gi symptoms resolve. Lupus - continue with plaquenil. Dyspnea - recommended pt to prop herself up at night when sleeping to see if this helps to decrease her shortness of breath. 02/04/2017 Appointment: [facility] [phone] [facility] [place] (15 min) Moderate 02/04/2017 Patient Education: Patient Medication Summary Completed 02/04/2017 Patient Education: Obesity Completed 02/04/2017 Visit Plan: Vaginal bleeding-pap completed today in the office-refer to Dr Cooney for evaluation Abdominal [id number] CT scan of abd/pelvis 12/12/2016 Appointment: Apryl Jacob WPtel: [phone] [phone] [place] (15 min) Moderate 12/12/2016 Patient Education: Patient Medication Summary Completed 12/12/2016 Patient Education: Obesity Completed 12/12/2016 Care Plan: PAP Pending 12/12/2016 Care Plan: Referral Order SNOMED-CT : [id number] Pending 12/12/2016 Visit Plan: Hypertension - well controlled - continue with current medications, continue with no added salt diet. Pt has been encouraged to exercise daily. The pt has been advised to call the office if there are any acute concerns about change in blood pressure readings at home. Lupus - symptoms controlled. Hyperlipidemia - pt has been counseled about appropriate diet, exercise, and need for low fat food choices. I have discussed the need for the patient to take medications as prescribed. If the patient has negative side effects from the medication, they are to CALL the office and not abruptly discontinue the medication without discussion with a practitioner in the office. We will check labs in 3-6 months for follow up on the patient's chronic medical problem and to assure normal liver response to medications. Hip pain- stretching 11/10/2016 Appointment: [facility]el[facility] [phone] [facility] (15 min) Moderate 11/10/2016 Patient Education: Patient Medication Summary Completed 11/10/2016 Patient Education: Obesity Completed 11/10/2016 Visit Plan: Medicare Exam - today we discussed the patients past history, immunizations, preventative exams/evaluations - colonoscopy, fecal occult blood testing, routine labs for renal function, glucose, cholesterol, osteoporosis evaluations, cardiovascular testing and cancer screenings. We have also discussed mental health and the signs/symptoms of depression. The patient was advised of home safety evaluations and the need to make sure that as the aging process continues, we need to be aware of different ways to make the home a safer place to reside. The patient has also been counseled that exercise is necessary - and of utmost importance as we age to help decrease fall risk and to maintain independece in the home. Today we discussed the need for the patient to create paperwork for Advanced directives as well as for the patient to provide this office with a copy of her DOPA paperwork for health care surrogate. 10/17/2016 Appointment: [facility] [phone] [id number] [facility] - Annual Wellness Visit 10/17/2016 Patient Education: Patient Medication Summary Completed 10/17/2016 Visit Plan: Hypertension - uncontrolled - the patient's medications have been modified as documented in the visit note. The patient has been counseled to cut back on salt in diet for a no added salt diet, low fat diet, start an exercise program with low weight bearing exercises and higher aerobic activity for heart health. The patient is to check blood pressure readings as an outpatient and either fax, call, or email the readings to the office next week for practitioner to review. The pt is to call for acute concerns. Lupus - symptoms controlled. 10/13/2016 Appointment: [facility]ary [facility]el[facility] [phone] [facility] (15 min) Moderate 10/13/2016 Patient Education: Patient Medication Summary Completed 10/13/2016 Patient Education: Obesity Completed 10/13/2016 Care Plan: Comp Metabolic Pending 10/13/2016 Care Plan: Cbc With Differential Pending 10/13/2016 Care Plan: Tsh Pending 10/13/2016 Care Plan: Lipid Pending 10/13/2016 Patient Education: Patient Medication Summary Completed 08/11/2016 Visit Plan: Hypertension - well controlled - continue with current medications, continue with no added salt diet. Pt has been encouraged to exercise daily. The pt has been advised to call the office if there are any acute concerns about change in blood pressure readings at home. prevnar shot Lupus - continue with plaquenil 05/05/2016 Appointment: Sary Polo WPtel: [phone] [facility] (15 min) Moderate 05/05/2016 Patient Education: Patient Medication Summary Completed 05/05/2016 Patient Education: Obesity Completed 05/05/2016 Patient Education: Hypertension Completed 05/05/2016 Visit Plan: Hypertension - too well controlled - stop lisinopril - continue with no added salt diet. Pt has been encouraged to exercise daily. The pt has been advised to call the office if there are any acute concerns about change in blood pressure readings at home. Depression - start sertraline 50mg daily. Dysphonia - may improve with stopping lisinopril. monitor symptoms. Diarrhea - start bentyl 04/21/2016 Appointment: Sary Polo WPtel: [phone] [phone] (15 min) Moderate 04/21/2016 Patient Education: Patient Medication Summary Completed 04/21/2016 Patient Education: Obesity Completed 04/21/2016 Patient Education: Hypertension Completed 04/21/2016 Visit Plan: Hypertension - well controlled - continue with current medications, continue with no added salt diet. Pt has been encouraged to exercise daily. The pt has been advised to call the office if there are any acute concerns about change in blood pressure readings at home. Diarrhea - associated with meals - recommended questran Lupus - continue with plaquenil. 10/02/2015 Patient Education: Patient Medication Summary Completed 10/02/2015 Patient Education: Hypertension Completed 10/02/2015 Visit Plan: Hypertension - well controlled - continue with current medications, continue with no added salt diet. Pt has been encouraged to exercise daily. The pt has been advised to call the office if there are any acute concerns about change in blood pressure readings at home. Lupus - pt using plaquenil - continue with current use. Diarrhea - Pt instructed as follows : PROBIOTICS - align, culturelle, or INFR[employer]ED IMAGING SYSTEMS. - start with three times a day x 2 weeks then decrease to twice daily x 2 weeks then daily thereafter. - if this does not help the gi tract symptoms, then call the office and we can give a script for a medication called richard. 08/09/2015 Appointment: Sary Polo [facility]Ptel[facility] [phone] [facility] (15 min) Moderate 08/09/2015 Patient Education: Patient Medication Summary Completed 08/09/2015 Patient Education: Hypertension Completed 08/09/2015 Visit Plan: Hypertension - well controlled - continue with current medications, continue with no added salt diet. Pt has been encouraged to exercise daily. The pt has been advised to call the office if there are any acute concerns about change in blood pressure readings at home. Cold Sweats - discussed pt's medication - isosorbide may be part of the cause of the cold sweats. 03/14/2015 Appointment: [phone] [id number] [facility] 03/14/2015 Patient Education: Patient Medication Summary Completed 03/14/2015 Patient Education: Hypertension Completed 03/14/2015 Visit Plan: Low back pain- the patient was instructed in appropriate posture, need for weight loss to alleviate abdominal obesity that is worsening the patient's back pain.. The pt is to use prn antiinflammatories to manage acute pain. The patient is to call the office if the pain is worsening or does not improve. Sacroiliitis - back exercises discussed with the patient, pt to continue with anti-inflammatories. Pt is to call if the symptoms do not improve or if they worsen. 12/26/2014 Appointment: Sick 12/26/2014 Patient Education: Patient Medication Summary Completed 12/26/2014 Visit Plan: Esophageal Reflux - the patient has been counseled against excessive intake of caffeine, spicy foods, peppermint, and cinnamon - all of which can exacerbate esophageal reflux. The patient is to take medications as prescribed and call the office if the symptoms are not improving. Hypertension - well controlled - continue with current medications, continue with no added salt diet. Pt has been encouraged to exercise daily. The pt has been advised to call the office if there are any acute concerns about change in blood pressure readings at home. Rash - improving - pt with + SORAYA 1: 320 - pt does not want to drive to [place] to be seen by a Associate Chief Nurse - we will therefore attempt to get the pt an appt with a local Associate Chief Nurse/ Immuniologist. 11/06/2014 [place] [id number] Follow up 11/06/2014 Patient Education: Patient Medication Summary Completed 11/06/2014 Patient Education: Hypertension Completed 11/06/2014 Visit Plan: Hypertension - well controlled - continue with current medications, continue with no added salt diet. Pt has been encouraged to exercise daily. The pt has been advised to call the office if there are any acute concerns about change in blood pressure readings at home. Esophageal Reflux - the patient has been counseled against excessive intake of caffeine, spicy foods, peppermint, and cinnamon - all of which can exacerbate esophageal reflux. The patient is to take medications as prescribed and call the office if the symptoms are not improving. Rash across cheeks - pt to start on metronidazole gel, pt to have labs to see if this rash is due to lupus - due to the malar appearance of the rash - however, we will also start her on the metro gel as the rash does have some appearance of rosacea. 10/23/2014 App[facility]ment: [phone] [id number] New [facility] 10/23/2014 Patient Education: Patient Medication Summary Completed 10/23/2014 Patient Education: Hypertension Completed 10/23/2014 Referral: Niles Farias WPtel: Referral Appointment Requested Instructions Comment gas- ex over the counter -take this twice daily - morning and evening. . Hypertension - well controlled - continue with current medications, continue with no added salt diet. Pt has been encouraged to exercise daily. The pt has been advised to call the office if there are any acute concerns about change in blood pressure readings at home. Hyperlipidemia - pt has been counseled about appropriate diet, exercise, and need for low fat food choices. I have discussed the need for the patient to take medications as prescribed. If the patient has negative side effects from the medication, they are to CALL the office and not abruptly discontinue the medication without discussion with a practitioner in the office. We will check labs in 3-6 months for follow up on the patient's chronic medical problem and to assure normal liver response to medications. Weight gain - discussed with patient that she needs to decrease her carbohydrate intake, increase activity monitor symptoms. Pap CT abd/pelvis UA labs . Vaginal bleeding-pap completed today in the office-refer to Dr Cooney for evaluation Abdominal cfkw-sgkygjbr-ltpzgcwk CT scan of abd/pelvis melatonin 3mg to 10mg daily at bedtime for help with sleep . Hypertension - well controlled - continue with current medications, continue with no added salt diet. Pt has been encouraged to exercise daily. The pt has been advised to call the office if there are any acute concerns about change in blood pressure readings at home. Cold Sweats - discussed pt's medication - isosorbide may be part of the cause of the cold sweats. . Hypertension - well controlled - continue with current medications, continue with no added salt diet. Pt has been encouraged to exercise daily. The pt has been advised to call the office if there are any acute concerns about change in blood pressure readings at home. Lupus - continue with plaquenil PROBIOTICS - [employer], culturelle, or [employer]. - start with three times a day x 2 weeks then decrease to twice daily x 2 weeks then daily thereafter. - if this does not help the gi tract symptoms, then call the office and we can give a script for a medication called questran. . Hypertension - well controlled - continue with current medications, continue with no added salt diet. Pt has been encouraged to exercise daily. The pt has been advised to call the office if there are any acute concerns about change in blood pressure readings at home. Lupus - pt using plaquenil - continue with current use. Diarrhea - Pt instructed as follows: PROBIOTICS - align, culturelle, or [employer]. - start with three times a day x 2 weeks then decrease to twice daily x 2 weeks then daily thereafter. - if this does not help the gi tract symptoms, then call the office and we can give a script for a medication called questran. . Hypertension - well controlled - continue with current medications, continue with no added salt diet. Pt has been encouraged to exercise daily. The pt has been advised to call the office if there are any acute concerns about change in blood pressure readings at home. Lupus - symptoms controlled. Hyperlipidemia - pt has been counseled about appropriate diet, exercise, and need for low fat food choices. I have discussed the need for the patient to take medications as prescribed. If the patient has negative side effects from the medication, they are to CALL the office and not abruptly discontinue the medication without discussion with a practitioner in the office. We will check labs in 3-6 months for follow up on the patient's chronic medical problem and to assure normal liver response to medications. Hip pain- stretching decrease the isosorbide to one pill daily - call if any chest pain - and increase back up to 2 pills daily if you have chest pain or exercise intolerance that worsens. . Hypertension - well controlled - continue with current medications, continue with no added salt diet. Pt has been encouraged to exercise daily. The pt has been advised to call the office if there are any acute concerns about change in blood pressure readings at home. prevnar shot Lupus - continue with plaquenil . Hypertension - uncontrolled - the patient's medications have been modified as documented in the visit note. The patient has been counseled to cut back on salt in diet for a no added salt diet, low fat diet, start an exercise program with low weight bearing exercises and higher aerobic activity for heart health. The patient is to check blood pressure readings as an outpatient and either fax , call, or email the readings to the office next week for practitioner to review. The pt is to call for acute concerns. Lupus - symptoms controlled. stop lisinopril check blood pressure and heart rate at home twice daily - bring in report in 2 weeks . Hypertension - too well controlled - stop lisinopril - continue with no added salt diet. Pt has been encouraged to exercise daily. The pt has been advised to call the office if there are any acute concerns about change in blood pressure readings at home. Depression - start sertraline 50mg daily. Dysphonia - may improve with stopping lisinopril. monitor symptoms. Diarrhea - start bentyl . Low back pain- the patient was instructed in appropriate posture, need for weight loss to alleviate abdominal obesity that is worsening the patient's back pain.. The pt is to use prn antiinflammatories to manage acute pain. The patient is to call the office if the pain is worsening or does not improve. Sacroiliitis - back exercises discussed with the patient, pt to continue with anti-inflammatories. Pt is to call if the symptoms do not improve or if they worsen. . Hypertension - well controlled - continue with current medications, continue with no added salt diet. Pt has been encouraged to exercise daily. The pt has been advised to call the office if there are any acute concerns about change in blood pressure readings at home. Esophageal Reflux - the patient has been counseled against excessive intake of caffeine, spicy foods, peppermint, and cinnamon - all of which can exacerbate esophageal reflux. The patient is to take medications as prescribed and call the office if the symptoms are not improving. Rash across cheeks - pt to start on metronidazole gel, pt to have labs to see if this rash is due to lupus - due to the malar appearance of the rash - however , we will also start her on the metro gel as the rash does have some appearance of rosacea. . Medicare Exam - today we discussed the patients past history, immunizations, preventative exams/evaluations - colonoscopy, fecal occult blood testing, routine labs for renal function, glucose, cholesterol, osteoporosis evaluations, cardiovascular testing and cancer screenings. We have also discussed mental health and the signs/symptoms of depression. The patient was advised of home safety evaluations and the need to make sure that as the aging process continues, we need to be aware of different ways to make the home a safer place to reside. The patient has also been counseled that exercise is necessary - and of utmost importance as we age to help decrease fall risk and to maintain independece in the home. Today we discussed the need for the patient to create paperwork for Advanced directives as well as for the patient to provide this office with a copy of her DOP[employer] paperwork for health care surrogate. . Hypertension - well controlled - continue with current medications, continue with no added salt diet. Pt has been encouraged to exercise daily. The pt has been advised to call the office if there are any acute concerns about change in blood pressure readings at home. Abdominal pain - I have recommended referral to [facility] for egd/colnoscopy - however she has refused the recommendation - she wants to wait for the next three months to see if her gi symptoms resolve. Lupus - continue with plaquenil. Dyspnea - recommended pt to prop herself up at night when sleeping to see if this helps to decrease her shortness of breath. . Hypertension - well controlled - continue with current medications, continue with no added salt diet. Pt has been encouraged to exercise daily. The pt has been advised to call the office if there are any acute concerns about change in blood pressure readings at home. Diarrhea - associated with meals - recommended questran Lupus - continue with plaquenil. . Esophageal Reflux - the patient has been counseled against excessive intake of caffeine, spicy foods, peppermint, and cinnamon - all of which can exacerbate esophageal reflux. The patient is to take medications as prescribed and call the office if the symptoms are not improving. Hypertension - well controlled - continue with current medications, continue with no added salt diet. Pt has been encouraged to exercise daily. The pt has been advised to call the office if there are any acute concerns about change in blood pressure readings at home. Rash - improving - pt with + SORAYA 1:320 - pt does not want to drive to [place] to be seen by a Associate Chief Nurse - we will therefore attempt to get the pt an appt with a local Associate Chief Nurse/Immuniologist.
== END 2017-10-11 08:42 | disposition home or self-care (01) ==
LOC: EDUNIT# 06:03 → ER 06:06
DX: J06.9 Acute upper respiratory infection, unspecified (principal); E78.00 Pure hypercholesterolemia, unspecified; I10 Essential (primary) hypertension; Z90.710 Acquired absence of both cervix and uterus; Z90.89 Acquired absence of other organs; Z79.52 Long term (current) use of systemic steroids
CPT/HCPCS: 36415; 71045; 80053; 85025; 87804

== ENCOUNTER → 2018-01-12 | Outpatient (CLI) | payer MEDICARE, OTHER ==
--- NOTE | 2018-01-12 17:38 | Diagnostic Imaging Report ---
INDICATION: Neck and bilateral arm pain x6 days. No known injury.. TECHNIQUE: AP, lateral and odontoid views cervical spine.. CORRELATION STUDY: None FINDINGS: Alignment relatively anatomic. Slight loss of height at the C5 level. Slight irregular sloping of the superior C7 level. Rather prominent disc space narrowing at C5-C6, C6-C7 and, to lesser degree, C7-T1 levels. Prominent osteophytes, particularly anteriorly, are noted. There is however slightly more prominent osteophyte at the posterior inferior C5-C6 level, likely predisposing potential foraminal and/or canal narrowing. Odontoid intact. Lateral masses at C1-C2 aligned. Asymmetric areas of hypertrophic facet arthropathy are suggested. Very mildly prominent C7 cervical ribs. Prevertebral soft tissues are unremarkable. IMPRESSION: 1. Negative for acute findings of the cervical spine. 2. There is rather prominent multilevel asymmetric areas of cervical spondylosis. Disc space narrowing and osteophyte formation does result in the potential for foraminal and/or canal narrowing. If further assessment is desired, MRI may be of additional benefit. Dictated by: Dictated on workstation # [id number]
== END ==
LOC: RAD 15:34
PROVIDERS: ATTEND Nurse Practitioner Family
DX: M47.812 Spondylosis without myelopathy or radiculopathy, cervical region (principal); M50.30 Other cervical disc degeneration, unspecified cervical region
CPT/HCPCS: 72040

== ENCOUNTER → 2018-01-18 | Outpatient (CLI) | payer MEDICARE, OTHER ==
--- NOTE | 2018-01-18 10:41 | Diagnostic Imaging Report ---
PROCEDURE: MR imaging cervical spine without contrast. TECHNIQUE: Multiplanar, multisequence MR imaging of the cervical spine was performed without contrast. INDICATION: Bilateral shoulder pain and arm pain as well as sternum and chest pain. No prior MRI of the cervical spine is available for comparison. Curvature and alignment of the cervical spine is normal. The vertebral body marrow signal is normal. No geographic marrow lesion is seen. There is multilevel degenerative disc disease apparent with disc space narrowing and desiccation, greatest at C5-C6 and C6-C7 levels. Cervical cord does show homogeneous signal intensity. No abnormal cord signal is detected. C2-C3: Central canal and neural foramina are widely patent. C3-C4: Broad-based endplate osteophytes are present but no significant central canal or neuroforaminal stenosis is identified. C4-C5: There is some wide based midline/right paramidline disc/osteophyte complex that indents the ventral thecal sac. This does produce some mild narrowing of the central canal. The no significant neural foraminal stenosis is seen. C5-C6: Broad-based disc/osteophyte complex and uncovertebral joint degenerative change does result in mild central canal narrowing. There is significant bilateral neural foraminal stenosis. C6-C7: End-plate osteophytes and uncovertebral joint degenerative change results in moderate bilateral neural foraminal stenosis. Central canal is patent. C7-T1: Central canal and neural foramina appear patent. IMPRESSION: Multilevel cervical spondylosis with multilevel central canal and neuroforaminal stenosis described level by level above. Dictated by: Dictated on workstation # [id number]
== END ==
LOC: RAD 09:42
PROVIDERS: ATTEND Nurse Practitioner Family
DX: M48.02 Spinal stenosis, cervical region (principal); M50.322 Other cervical disc degeneration at C5-C6 level; M47.812 Spondylosis without myelopathy or radiculopathy, cervical region; M99.71 Connective tissue and disc stenosis of intervertebral foramina of cervical region
CPT/HCPCS: 72141

== ENCOUNTER 2018-10-21 13:10 | Outpatient (CLI) | payer MEDICARE, OTHER ==
[~2018-10-21] VITALS: Ht 157.5 cm; Wt 84.4 kg
[2018-10-21 13:22] VITALS: BP 127/51
[2018-10-21 13:57] LABS: BASOPHILS % (AUTO) 0 % (0-10); EOSINOPHILS # (AUTO) 0.2 10^3/uL (0.0-0.3); EOSINOPHILS % (AUTO) 2 % (0-10); HEMATOCRIT 34 % (35-52); HEMOGLOBIN 11.2 G/DL (11.5-16.0); LYMPHOCYTES # (AUTO) 1.5 X 10^3 (1.0-4.0); LYMPHOCYTES % (AUTO) 17 % (12-44); MEAN CORPUSCULAR HEMOGLOBIN 30 PG (25-34); MEAN CORPUSCULAR HGB CONC 33 G/DL (32-36); MEAN CORPUSCULAR VOLUME 89 FL (80-99); MEAN PLATELET VOLUME 10.6 FL (7.4-10.4); MONOCYTES # (AUTO) 0.5 X 10^3 (0.0-1.0); MONOCYTES % (AUTO) 6 % (0-12); NEUTROPHILS # (AUTO) 6.8 X 10^3 (1.8-7.8); NEUTROPHILS % (AUTO) 75 % (42-75); PLATELET COUNT 170 10^3/uL (130-400); RED CELL DISTRIBUTION WIDTH 13.3 % (10.0-14.5)
[2018-10-21] MEDS ORDERED: ATEN50TA PO (13:59)
[2018-10-21] MEDS ORDERED: TIZA2TAB3 PO (13:59)
[2018-10-21] MEDS ORDERED: NFIPRATRNS NS (13:59)
[2018-10-21] MEDS ORDERED: LOSA50TA63 PO (13:59)
[2018-10-21] MEDS ORDERED: CLOP75TA28 PO (13:59)
[2018-10-21] MEDS ORDERED: UBID100C17 PO (13:59)
[2018-10-21] MEDS ORDERED: HYDR25TA4 PO (13:59)
[2018-10-21] MEDS ORDERED: ASPI-586 PO (13:59)
[2018-10-21] MEDS ORDERED: PRAV20TA3 PO (13:59)
[2018-10-21] MEDS ORDERED: CHOL200025 PO (13:59)
[2018-10-21] MEDS ORDERED: HYDR200T46 PO (13:59)
[2018-10-21] MEDS ORDERED: SERT50TA9 PO (13:59)
[2018-10-21 14:13] LABS: CALCIUM 9.4 MG/DL (8.5-10.1); CREATININE SERUM 1.44 MG/DL (0.60-1.30); POTASSIUM 3.5 MMOL/L (3.6-5.0)
== END 2018-10-21 13:50 | disposition home or self-care (01) ==
LOC: PREOP 13:10
PROVIDERS: ATTEND Obstetrics & Gynecology
DX: Z01.812 Encounter for preprocedural laboratory examination (principal); Z11.2 Encounter for screening for other bacterial diseases; N95.0 Postmenopausal bleeding; Z79.01 Long term (current) use of anticoagulants
CPT/HCPCS: 36415; 80048; 85025; 86850; 86900; 86901; 87081

== ENCOUNTER 2018-10-26 06:00 | Inpatient (IN) | payer MEDICARE, OTHER | END 2018-11-10 20:40 | disposition designated cancer center or children's hospital (05) | LOC: SDC 06:00 → ICU 10-30 13:49 → 4TH 11-01 08:00 → WS 11:19 → ICU 11-01 16:57 → WS 13:24 → ICU 11-02 20:30 → 4TH 11-02 20:30 → ICU 11-02 20:30 | PROC: 0DBB0ZZ Excision of Ileum, Open Approach (ICD-10-PCS; principal; 2018-10-26 07:43) | PROC: 0TQB0ZZ Repair Bladder, Open Approach (ICD-10-PCS; 2018-10-26 07:43) | PROC: 0U9MXZZ Drainage of Vulva, External Approach (ICD-10-PCS; 2018-10-26 07:43) | PROC: 0UNG4ZZ Release Vagina, Percutaneous Endoscopic Approach (ICD-10-PCS; 2018-10-26 07:43) | PROC: 0UQG7ZZ Repair Vagina, Via Natural or Artificial Opening (ICD-10-PCS; 2018-10-26 07:43) | PROC: 8E0W4CZ Robotic Assisted Procedure of Trunk Region, Percutaneous Endoscopic Approach (ICD-10-PCS; 2018-10-26 07:43) | DX: K91.72 Accidental puncture and laceration of a digestive system organ or structure during other procedure (principal); S36.438A Laceration of other part of small intestine, initial encounter; J96.00 Acute respiratory failure, unspecified whether with hypoxia or hypercapnia; N99.72 Accidental puncture and laceration of a genitourinary system organ or structure during other procedure; S37.23XA Laceration of bladder, initial encounter; A41.9 Sepsis, unspecified organism; K91.89 Other postprocedural complications and disorders of digestive system; K56.7 Ileus, unspecified; N32.2 Vesical fistula, not elsewhere classified; N17.9 Acute kidney failure, unspecified; E87.1 Hypo-osmolality and hyponatremia; J98.11 Atelectasis; B37.0 Candidal stomatitis; N95.0 Postmenopausal bleeding; N95.2 Postmenopausal atrophic vaginitis; I25.10 Atherosclerotic heart disease of native coronary artery without angina pectoris; I12.9 Hypertensive chronic kidney disease with stage 1 through stage 4 chronic kidney disease, or unspecified chronic kidney disease; N18.9 Chronic kidney disease, unspecified; N94.89 Other specified conditions associated with female genital organs and menstrual cycle; E86.0 Dehydration; R60.0 Localized edema; M32.9 Systemic lupus erythematosus, unspecified; D64.9 Anemia, unspecified; R45.1 Restlessness and agitation; E78.00 Pure hypercholesterolemia, unspecified; R19.7 Diarrhea, unspecified; K66.8 Other specified disorders of peritoneum; E83.42 Hypomagnesemia; E87.6 Hypokalemia; Z90.711 Acquired absence of uterus with remaining cervical stump ==